=== PATIENT | female | born 1955 | race Caucasian/White ===

== ENCOUNTER 2019-06-19 00:49 | Inpatient (IN) | payer MEDICARE, OTHER ==
[~2019-06-19] VITALS: Ht 170.2 cm; Wt 63.3 kg
[2019-06-19] VITALS (22 sets, daily range): BP systolic 95–128; BP diastolic 47–76
[2019-06-19] MEDS ORDERED: diazepam inj 5 MG/ML inj. IV ONE ×3 (01:05→03:05)
[2019-06-19] MEDS ORDERED: normal saline 1000ML IV soln IVB ONE (01:05)
--- NOTE | 2019-06-19 01:10 | NUR ---
SEIZURE PADS PLACED TO RAILS, ABG DRAWN. PT TREMORING TO BUE. HR 117 OTHERWISE VSS. ACCUCHECK 77.
[2019-06-19 01:16] LABS: ABG BASE EXCESS -21.7 mmol/L (-2.0-3.0); ABG OXYGEN SATURATION 95.1 % (95-98); ABG PCO2 (T) 19.2 mmHg (35.0-45.0); ABG PH (T) 7.112 (7.350-7.450); ABG PO2 (T) 91.2 mmHg (83-108); ALLEN'S TEST POSITIVE; FCOHb 0.7 % (0.5-1.5); FMetHb 0.2 % (0.3-1.12); FO2Hb 94.2 % (94-100); PATIENT TEMPERATURE 36.8; TOTAL HEMOGLOBIN 11.5 G/dl (12.0-16.0)
[2019-06-19 01:35] LABS: BASOPHILS % (AUTO) 0.2 % (0-1); EOSINOPHILS % (AUTO) 0 % (0-6); HEMATOCRIT 35.5 % (35.0-45.0); HEMOGLOBIN 10.6 g/dl (12.0-16.0); LYMPHOCYTES # (AUTO) 0.6 X10'3 (1.1-4.8); LYMPHOCYTES % (AUTO) 7.1 % (21-51); MEAN CORPUSCULAR HEMOGLOBIN 25.5 PG (27.0-31.0); MEAN CORPUSCULAR HGB CONC 29.9 g/dL (33.0-36.5); MEAN CORPUSCULAR VOLUME 85.1 FL (78-98); MEAN PLATELET VOLUME 8.9 FL (7.4-10.4); MONOCYTES % (AUTO) 10.8 % (2-12); NEUTROPHILS # (AUTO) 7.4 X10'3 (1.8-7.7); NEUTROPHILS % (AUTO) 81.9 % (42-75); PLATELET COUNT 168 X10'3 (140-440); RED BLOOD COUNT 4.17 X10'6 (4.20-5.60); RED CELL DISTRIBUTION WIDTH 20.1 % (11.5-14.5)
[2019-06-19 01:47] LABS: CLARITY,URINE CLEAR (Clear); COLOR,URINE YELLOW (Yellow); GLUCOSE, URINE NEGATIVE (Neg); KETONES,URINE >=80 mg/dl (Neg); LEUKOCYTE ESTERASE ,URINE NEGATIVE (Neg); NITRITES, URINE NEGATIVE (Neg); OCCULT BLOOD,URINE LARGE (Neg); PROTEIN,URINE 100 mg/dl (Neg); UROBILINOGEN,URINE 0.2 E.U/dL (0.2-1.0)
[2019-06-19 01:48] LABS: PARTIAL THROMBOPLASTIN TIME 28 SECONDS (22-32)
[2019-06-19 01:52] LABS: UA COLLECTION TYPE FOLEY CATH
[2019-06-19 01:53] LABS: ALANINE AMINOTRANSFERASE 59 U/L (12-78); ALBUMIN 3.2 G/DL (3.4-5.0); ALBUMIN/GLOBULIN RATIO 1.1 (1.1-1.5); ALKALINE PHOSPHATASE 74 IU/L (46-116); ANION GAP 25 (8-16); ASPARTATE AMINO TRANSFERASE 65 U/L (10-37); BILIRUBIN,TOTAL 0.7 MG/DL (0.1-1.0); BLOOD UREA NITROGEN 14 MG/DL (7-18); BUN/CREATININE RATIO 16.5 (6.6-38.0); CALCIUM 7.3 MG/DL (8.5-10.1); CHLORIDE 113 MMOL/L (99-107); CREATININE 0.85 MG/DL (0.40-0.90); ETHANOL < 0.010 GM/DL (0.0-0.010); GLUCOSE 77 MG/DL (70-104); POTASSIUM 3.8 MMOL/L (3.5-5.1); SODIUM 149 MMOL/L (135-145); TOTAL PROTEIN 6.1 G/DL (6.4-8.2); eGFR 67 ML/MIN
[2019-06-19 01:54] LABS: LACTIC SEPSIS 1.5 MMOL/L (0.4-2.0)
[2019-06-19 01:55] LABS: BACTERIA,URINE NONE SEEN /HPF (Neg); CELLULAR CAST 0-4 /LPF (NEGATIVE); RBC,URINE 0-2 /HPF (0-2); SQUAMOUS EPITHELIAL CELL,UR MODERATE /LPF (FEW); TRANSITIONAL EPI CELLS,URINE FEW /HPF; WBC,URINE 0-4 /HPF (0-4)
[2019-06-19 01:55] LABS: TOTAL CARBON DIOXIDE 11.5 MMOL/L (24-32); TROPONIN I 1.69 NG/ML (0.0-0.05)
[2019-06-19] MEDS ORDERED: UNABLE TO OBTAIN (01:55)
[2019-06-19 02:00] LABS: URINE AMPHETAMINE SCREEN NEGATIVE (Neg); URINE BARBITUATE SCREEN NEGATIVE (Neg); URINE BENZODIAZEPINES SCREEN NEGATIVE (Neg); URINE CANNABINOID SCREEN NEGATIVE (Neg); URINE COCAINE SCREEN NEGATIVE (Neg); URINE METHADONE SCREEN NEGATIVE (Neg); URINE OPIATE SCREEN NEGATIVE (Neg); URINE PHENCYCLIDINE SCREEN NEGATIVE (Neg)
[2019-06-19] MEDS: NORepinephrine 8mg/ 250ml NS 250 ML IV SCH ×4 (02:05→20:01)
[2019-06-19 02:39] LABS: NUCLEATED RED BLOOD CELLS 1 /100WBC (0-0); TOTAL CELLS COUNTED 100
[2019-06-19 02:41] LABS: ANISOCYTOSIS 3+; PLATELET ESTIMATE NORMAL
[2019-06-19] MEDS: sodium bicarbonate (8.4%) inj. 50 MEQ in dextrose 5%-water 1,000 ML IV SCH ×2 (03:17→05:09)
--- NOTE | 2019-06-19 03:21 | NUR ---
BICARB GTT STARTED. PT WITH ORDERS FOR LEVOPHED GTT EARLIER BUT BPS REMAINED 110-120, PT NOW WITH CNSISTANT BPS IN MID 80'S SYSTOLIC SO LEVOPHED GTT NOW STARTED RR CONTINUES AT 40 MIN. ABLE TO AWAKEN PT AND SHE WILL TELL ME HER NAME AND . AWAITING TECHNOLOGY INTERNSHIP FOR ADMISSIN ORDERS. GIVEN 2ND DOSE OF VALIUM 5 MG IVP.
[2019-06-19] MEDS ORDERED: haloperidol lactate 5mg/ml inj IM PRN ×2 (03:25)
[2019-06-19] MEDS ORDERED: acetaminophen 325mg tablet PO PRN ×2 (03:25)
[2019-06-19] MEDS ORDERED: loperamide 2mg capsule PO PRN (03:25)
[2019-06-19] MEDS ORDERED: thiamine 100mg/ml 2ml inj. IV ONE (03:25)
[2019-06-19] MEDS: K, MAG and/or Phos replacement - Verify level? MC SCH ×2 (03:25→08:00)
[2019-06-19] MEDS ORDERED: potassium Cl 20mEq/100mL bag 100 ML IV PRN (03:25)
[2019-06-19] MEDS ORDERED: dextrose 50%-water 50ml dispensing syringe IV PRN (03:25)
[2019-06-19] MEDS ORDERED: haloperidol 5mg tablet PO PRN (03:25)
[2019-06-19] MEDS ORDERED: potassium Cl 20 mEq SR tablet PO PRN ×2 (03:25)
[2019-06-19] MEDS: sodium bicarbonate (8.4%) inj. 75 MEQ in dextrose 5% water 500ml 500 ML IV SCH ×4 (03:25→20:00)
[2019-06-19] MEDS ORDERED: cloNIDine 0.1 mg tablet PO PRN (03:25)
[2019-06-19] MEDS ORDERED: sodium bicarbonate (8.4%) 1 mEq/ml syringe IV ONE (03:25)
[2019-06-19] MEDS ORDERED: acetaminophen 650mg rectal suppository RC PRN (03:25)
--- NOTE | 2019-06-19 04:02 | NUR ---
Ken REY AT BEDSIDE FOR ADMISSION. UPDATED THAT PT DOES NOT HAVE TEMP FLORES, ARRIVED WITH STANDARD FLORES CATH. 3 HR TRO DUE NOW. ROOM ASSIGNMENT.
--- NOTE | 2019-06-19 04:05 | NUR ---
Ken REY REQUESTS CVP MONITORING NOW BEFORE GOING UP TO ROOM 2010A ,
[2019-06-19] MEDS ORDERED: normal saline 1000ml 1,000 ML IV ONE (04:10)
--- NOTE | 2019-06-19 04:19 | NUR ---
3 HR TROP DRAWN
--- NOTE | 2019-06-19 04:31 | NUR ---
report given to mago benitez, cicu. ipa 2010A
[2019-06-19] MEDS: LORazepam 2 mg/ml vial IV PRN ×4 (06:11→11:52)
[2019-06-19] MEDS: atenolol 50mg tablet PO SCH (08:00)
[2019-06-19 09:01] LABS: ABG BASE EXCESS -17.1 mmol/L (-2.0-3.0); ABG HCO3 8.7 mmol/L (22.0-26.0); ABG OXYGEN SATURATION 87.1 % (95-98); ABG PH (T) 7.234 (7.350-7.450); ALLEN'S TEST POSITIVE; FCOHb 0.1 % (0.5-1.5); FMetHb 0.2 % (0.3-1.12); FO2Hb 86.8 % (94-100)
[2019-06-19 09:01] LABS: ABG BASE EXCESS -15.7 mmol/L (-2.0-3.0); ABG HCO3 10.5 mmol/L (22.0-26.0); ABG OXYGEN SATURATION 85.4 % (95-98); ABG PCO2 (T) 25.9 mmHg (35.0-45.0); ABG PH (T) 7.224 (7.350-7.450); ABG PO2 (T) 53.2 mmHg (83-108); ALLEN'S TEST POSITIVE; FCOHb 0.3 % (0.5-1.5); FMetHb 0.1 % (0.3-1.12); FO2Hb 85.1 % (94-100); TOTAL HEMOGLOBIN 9.5 G/dl (12.0-16.0)
[2019-06-19] MEDS: pantoprazole 40 MG vial IV SCH (09:12)
[2019-06-19] MEDS: MVI, adult No.4 with vit. K 10 ML in dextrose 5% water 500ml 500 ML IV SCH ×2 (09:13)
[2019-06-19] MEDS: thiamine inj. 100 MG in normal saline 100ml IV soln 100 ML IV SCH (09:13)
[2019-06-19] MEDS: dexmedetomidin/NS 400mcg/100ml 100 ML IV SCH ×3 (09:14→22:27)
[2019-06-19] MEDS: heparin, porcine 5000 units/ml vial SQ SCH ×2 (09:17→20:03)
[2019-06-19] MEDS: dextrose 5%-normal saline 1,000 ML IV SCH (09:27)
[2019-06-19] MEDS: folic acid 1mg/0.2ml inj IV SCH (11:16)
[2019-06-19] MEDS: levoFLOXACIN-Levaquin 500mg/D5 100 ML IV SCH (11:57)
--- NOTE | 2019-06-19 18:28 | NUR ---
Problems reprioritized. Patient report given, questions answered & plan of care reviewed with Zena BLOOD.
[2019-06-19 21:56] LABS: ALBUMIN 2.5 G/DL (3.4-5.0); ANION GAP 10 (8-16); BLOOD UREA NITROGEN 4 MG/DL (7-18); BUN/CREATININE RATIO 5.9 (6.6-38.0); CALCIUM 6.8 MG/DL (8.5-10.1); CHLORIDE 109 MMOL/L (99-107); CREATININE 0.68 MG/DL (0.40-0.90); GLUCOSE 189 MG/DL (70-104); POTASSIUM 2.5 MMOL/L (3.5-5.1); SODIUM 147 MMOL/L (135-145); TOTAL CARBON DIOXIDE 28.2 MMOL/L (24-32); eGFR 87 ML/MIN
[2019-06-19 21:57] LABS: TROPONIN I 0.78 NG/ML (0.0-0.05)
[2019-06-19 22:12] LABS: MAGNESIUM 1.4 MG/DL (1.5-2.4)
[2019-06-19] MEDS: potassium Cl 20mEq/100mL bag 100 ML IV PRN ×2 (22:26→23:17)
[2019-06-20] VITALS (24 sets, daily range): BP systolic 89–138; BP diastolic 43–75
[2019-06-20] MEDS: potassium Cl 20mEq/100mL bag 100 ML IV PRN ×2 (00:31→01:36)
[2019-06-20] MEDS: LORazepam 2 mg/ml vial IV PRN ×5 (01:35→14:42)
[2019-06-20] MEDS: sodium bicarbonate (8.4%) inj. 75 MEQ in dextrose 5% water 500ml 500 ML IV SCH ×2 (02:09→08:19)
[2019-06-20] MEDS: morphine 4 MG/ML inj SYRINge IV PRN (03:11)
[2019-06-20 04:38] LABS: BASOPHILS # (AUTO) 0.1 X10'3 (0-0.2); BASOPHILS % (AUTO) 0.9 % (0-1); EOSINOPHILS % (AUTO) 0.6 % (0-6); HEMATOCRIT 30.4 % (35.0-45.0); HEMOGLOBIN 9.6 g/dl (12.0-16.0); LYMPHOCYTES # (AUTO) 0.8 X10'3 (1.1-4.8); LYMPHOCYTES % (AUTO) 11.2 % (21-51); MEAN CORPUSCULAR HEMOGLOBIN 25.4 PG (27.0-31.0); MEAN CORPUSCULAR HGB CONC 31.6 g/dL (33.0-36.5); MEAN CORPUSCULAR VOLUME 80.4 FL (78-98); MEAN PLATELET VOLUME 8.3 FL (7.4-10.4); MONOCYTES % (AUTO) 14.7 % (2-12); NEUTROPHILS % (AUTO) 72.6 % (42-75); PLATELET COUNT 172 X10'3 (140-440); RED BLOOD COUNT 3.78 X10'6 (4.20-5.60); RED CELL DISTRIBUTION WIDTH 20.3 % (11.5-14.5); WHITE BLOOD COUNT 6.9 X10'3 (4.5-11.0)
[2019-06-20 05:02] LABS: ALANINE AMINOTRANSFERASE 31 U/L (12-78); ALBUMIN 2.5 G/DL (3.4-5.0); ALBUMIN/GLOBULIN RATIO 0.9 (1.1-1.5); ALKALINE PHOSPHATASE 57 IU/L (46-116); AMYLASE 27 U/L (25-115); ANION GAP 5 (8-16); ASPARTATE AMINO TRANSFERASE 44 U/L (10-37); BILIRUBIN,TOTAL 0.8 MG/DL (0.1-1.0); BLOOD UREA NITROGEN 2 MG/DL (7-18); BUN/CREATININE RATIO 3.2 (6.6-38.0); CALCIUM 7.3 MG/DL (8.5-10.1); CHLORIDE 107 MMOL/L (99-107); CREATININE 0.62 MG/DL (0.40-0.90); GLUCOSE 221 MG/DL (70-104); LIPASE 121 U/L (73-393); MAGNESIUM 1.4 MG/DL (1.5-2.4); POTASSIUM 3.2 MMOL/L (3.5-5.1); SODIUM 144 MMOL/L (135-145); TOTAL CARBON DIOXIDE 32.5 MMOL/L (24-32); TOTAL PROTEIN 5.4 G/DL (6.4-8.2); eGFR > 90 ML/MIN
[2019-06-20 05:07] LABS: PHOSPHORUS 0.9 MG/DL (2.3-4.5)
[2019-06-20 05:59] LABS: ANISOCYTOSIS 3+; HYPOCHROMASIA 1+; PLATELET ESTIMATE NORMAL
[2019-06-20] MEDS ORDERED: sodium phosphate inj. 15 MMOL in dextrose 5%-water 250 ML IV PRN (06:00)
[2019-06-20] MEDS ORDERED: sodium phosphate inj. 30 MMOL in dextrose 5%-water 250 ML IV PRN (06:00)
[2019-06-20] MEDS: dexmedetomidin/NS 400mcg/100ml 100 ML IV SCH ×3 (06:11→21:36)
[2019-06-20] MEDS: dextrose 5%-normal saline 1,000 ML IV SCH (06:12)
[2019-06-20] MEDS: K, MAG and/or Phos replacement - Verify level? MC SCH (08:00)
[2019-06-20] MEDS: levoFLOXACIN-Levaquin 500mg/D5 100 ML IV SCH (08:05)
[2019-06-20] MEDS: thiamine inj. 100 MG in normal saline 100ml IV soln 100 ML IV SCH (08:06)
[2019-06-20] MEDS: MVI, adult No.4 with vit. K 10 ML in dextrose 5% water 500ml 500 ML IV SCH ×2 (08:08)
[2019-06-20] MEDS: folic acid 1mg/0.2ml inj IV SCH (08:08)
[2019-06-20] MEDS: heparin, porcine 5000 units/ml vial SQ SCH ×2 (08:12→22:05)
[2019-06-20] MEDS: pantoprazole 40 MG vial IV SCH (08:13)
[2019-06-20] MEDS: atenolol 50mg tablet PO SCH (08:13)
--- NOTE | 2019-06-20 11:16 | NUR ---
Tube feeding consult. Patient admitted with EtOH, tremors, withdrawal, made NPO yesterday d/t unsafe swallow and altered mentation. Note that electrolytes are low, Phos 0.9, Mag 1.4, K 3.2, receiving banana bag, thiamine, and potassium chloride IV prn replacement. Electrolytes likely low d/t EtOH and poor PO intake prior to admission. Recommend starting tube feeding low and advance with caution as with increased risk of refeeding syndrome, d/w bedside RN. Pt with EtOH ketoacidosis per MD. Recommend: 1. continuous tube feeding starting using Jevity 1.2 at 10 ml/hr and advance as tolerated by 20 ml q 8 hours to goal rate of 60 ml/hr will provide total volume 1440 ml, 1728 cals, 80 g protein, 1166 ml water. 2. additional water flush 135 ml q 6 hours 3. daily weights, prealbumin q monday and 4. Recommend BSS prior to diet advancement Addendum: 06/20/19 at [address] Amended: Links added.
[2019-06-20] MEDS ORDERED: dextrose 50%-water 50ml dispensing syringe IV PRN ×2 (11:25)
[2019-06-20] MEDS ORDERED: dextrose ORAL solution 15 GM/59 ML bottle OGT PRN ×2 (11:25)
[2019-06-20] MEDS ORDERED: glucagon, human recombinant 1mg kit SUBCUT PRN (11:25)
[2019-06-20] MEDS ORDERED: insulin Lispro (HumaLOG) vial - multi-dose SQ SCH (11:25)
[2019-06-20] MEDS ORDERED: MESSAGE TO PHARMACY PO ONE (11:25)
[2019-06-20] MEDS ORDERED: acetaminophen 325mg/10.15ml oral unit dose solution OGT PRN ×2 (11:36)
[2019-06-20 12:55] LABS: HEMOGLOBIN A1C 5.9 % (4.5-6.2)
[2019-06-20] MEDS: insulin regular, human U-100 3ml vial - multi-dose SQ SCH (15:27)
[2019-06-20] MEDS: POTASSIUM BICARB 20meq eff tab 20 MEQ TABLET.EFF OGT PRN (17:35)
[2019-06-20] MEDS: normal saline 1000ml 1,000 ML IV SCH (18:05)
[2019-06-20 18:17] LABS: ALANINE AMINOTRANSFERASE 40 U/L (12-78); ALBUMIN/GLOBULIN RATIO 0.8 (1.1-1.5); ALKALINE PHOSPHATASE 53 IU/L (46-116); ANION GAP 1 (8-16); ASPARTATE AMINO TRANSFERASE 42 U/L (10-37); BILIRUBIN,TOTAL 0.6 MG/DL (0.1-1.0); BLOOD UREA NITROGEN 1 MG/DL (7-18); BUN/CREATININE RATIO 1.9 (6.6-38.0); CALCIUM 6.2 MG/DL (8.5-10.1); CHLORIDE 110 MMOL/L (99-107); CREATININE 0.52 MG/DL (0.40-0.90); GLUCOSE 103 MG/DL (70-104); PHOSPHORUS 1.8 MG/DL (2.3-4.5); SODIUM 145 MMOL/L (135-145); TOTAL CARBON DIOXIDE 33.6 MMOL/L (24-32); TOTAL PROTEIN 4.5 G/DL (6.4-8.2); eGFR > 90 ML/MIN
[2019-06-20 18:21] LABS: POTASSIUM 2.3 MMOL/L (3.5-5.1)
[2019-06-20] MEDS: insulin glargine (Lantus) pen - multi-dose SQ SCH (21:00)
[2019-06-20] MEDS: NORepinephrine 8mg/ 250ml NS 250 ML IV SCH (21:37)
[2019-06-21] VITALS (23 sets, daily range): BP systolic 85–129; BP diastolic 42–75
[2019-06-21] MEDS: LORazepam 2 mg/ml vial IV PRN ×8 (01:11→22:28)
[2019-06-21] MEDS: POTASSIUM BICARB 20meq eff tab 20 MEQ TABLET.EFF OGT PRN ×4 (01:23→12:06)
[2019-06-21] MEDS: morphine 4 MG/ML inj SYRINge IV PRN ×2 (02:52→19:58)
[2019-06-21] MEDS ORDERED: LORazepam 2 mg/ml vial IV PRN (03:25)
[2019-06-21] MEDS ORDERED: LORazepam 1 MG tablet OGT PRN (03:25)
[2019-06-21 03:36] LABS: BASOPHILS % (AUTO) 0.5 % (0-1); EOSINOPHILS % (AUTO) 0.9 % (0-6); HEMATOCRIT 28.2 % (35.0-45.0); HEMOGLOBIN 8.9 g/dl (12.0-16.0); LYMPHOCYTES # (AUTO) 0.9 X10'3 (1.1-4.8); LYMPHOCYTES % (AUTO) 16.5 % (21-51); MEAN CORPUSCULAR HEMOGLOBIN 25.1 PG (27.0-31.0); MEAN CORPUSCULAR HGB CONC 31.7 g/dL (33.0-36.5); MEAN CORPUSCULAR VOLUME 79.2 FL (78-98); MEAN PLATELET VOLUME 8.7 FL (7.4-10.4); MONOCYTES # (AUTO) 0.9 X10'3 (0-0.9); MONOCYTES % (AUTO) 17.6 % (2-12); NEUTROPHILS # (AUTO) 3.4 X10'3 (1.8-7.7); NEUTROPHILS % (AUTO) 64.5 % (42-75); PLATELET COUNT 143 X10'3 (140-440); RED BLOOD COUNT 3.56 X10'6 (4.20-5.60); RED CELL DISTRIBUTION WIDTH 20.2 % (11.5-14.5); WHITE BLOOD COUNT 5.2 X10'3 (4.5-11.0)
[2019-06-21 03:41] LABS: ALANINE AMINOTRANSFERASE 46 U/L (12-78); ALBUMIN 2.3 G/DL (3.4-5.0); ALBUMIN/GLOBULIN RATIO 0.8 (1.1-1.5); ALKALINE PHOSPHATASE 60 IU/L (46-116); AMYLASE 20 U/L (25-115); ANION GAP 2 (8-16); ASPARTATE AMINO TRANSFERASE 51 U/L (10-37); BILIRUBIN,TOTAL 0.7 MG/DL (0.1-1.0); BLOOD UREA NITROGEN 3 MG/DL (7-18); BUN/CREATININE RATIO 5.4 (6.6-38.0); CHLORIDE 109 MMOL/L (99-107); CREATININE 0.56 MG/DL (0.40-0.90); GLUCOSE 156 MG/DL (70-104); LIPASE 54 U/L (73-393); MAGNESIUM 1.2 MG/DL (1.5-2.4); PHOSPHORUS 1.7 MG/DL (2.3-4.5); SODIUM 147 MMOL/L (135-145); TOTAL CARBON DIOXIDE 35.8 MMOL/L (24-32); TOTAL PROTEIN 5.1 G/DL (6.4-8.2); eGFR > 90 ML/MIN
[2019-06-21 04:52] LABS: TOTAL CELLS COUNTED 100
[2019-06-21 04:53] LABS: ANISOCYTOSIS 2+; MICROCYTOSIS 1+; PLATELET ESTIMATE NORMAL; STOMATOCYTES 1+
[2019-06-21] MEDS: dexmedetomidin/NS 400mcg/100ml 100 ML IV SCH ×4 (05:17→23:27)
[2019-06-21] MEDS: normal saline 1000ml 1,000 ML IV SCH ×3 (07:49→22:28)
[2019-06-21] MEDS: folic acid 1mg/0.2ml inj IV SCH (07:50)
[2019-06-21] MEDS: heparin, porcine 5000 units/ml vial SQ SCH ×2 (07:50→19:58)
[2019-06-21] MEDS: MVI, adult No.4 with vit. K 10 ML in dextrose 5% water 500ml 500 ML IV SCH ×2 (07:50)
[2019-06-21] MEDS: Neutra Phos packet PO PRN ×2 (07:51→12:05)
[2019-06-21] MEDS: thiamine inj. 100 MG in normal saline 100ml IV soln 100 ML IV SCH (07:52)
[2019-06-21] MEDS: pantoprazole 40 MG vial IV SCH (07:52)
[2019-06-21] MEDS: levoFLOXACIN-Levaquin 500mg/D5 100 ML IV SCH (07:52)
[2019-06-21] MEDS: atenolol 50mg tablet OGT SCH (08:00)
[2019-06-21] MEDS: K, MAG and/or Phos replacement - Verify level? MC SCH (08:00)
--- NOTE | 2019-06-21 09:22 | NUR ---
Tube feeding consult. Patient admitted with EtOH, tremors, withdrawal, made NPO yesterday d/t unsafe swallow and altered mentation. Note that electrolytes are low, Phos 0.9, Mag 1.4, K 3.2, receiving banana bag, thiamine, and potassium chloride IV prn replacement. Electrolytes likely low d/t EtOH and poor PO intake prior to admission. Recommend starting tube feeding low and advance with caution as with increased risk of refeeding syndrome, d/w bedside RN. Pt with EtOH ketoacidosis per MD. Recommend: 1. continuous tube feeding starting using Jevity 1.2 at 10 ml/hr and advance as tolerated by 20 ml q 8 hours to goal rate of 60 ml/hr will provide total volume 1440 ml, 1728 cals, 80 g protein, 1166 ml water. 2. additional water flush 200 ml q 4 hours 3. daily weights, prealbumin q monday and 4. Recommend BSS prior to diet advancement Addendum: 06/21/19 at [address] Amended: Links added.
--- NOTE | 2019-06-21 11:00 | NUR ---
Patient continues to have high respiratory rate in the 30s-40s, but drowsy. Pt restless at times but falls asleep. Dr. Almanza aware and notified during rounds. Orders to continue Ativan as ordered. No orders for ABG at this time.
--- NOTE | 2019-06-21 11:42 | NUR ---
F/u: Per RN at critical care rounds pt pulled out NG tube. ST has been consulted for BSS to determine if pt is able to tolerate PO intake. NG tube to be replaced and TF resumed if pt fails BSS per MD at critical care rounds. Pt receiving electrolyte replacement. No documented LBM however per RN pt with 2-3 loose BMs today, pt with PRN Imodium. Will continue to follow closely. Addendum: 06/21/19 at [address] Amended: Links added.
[2019-06-21] MEDS: magnesium Cl slow-release 64mg tablet PO SCH ×2 (11:52→19:58)
[2019-06-21] MEDS: NORepinephrine 8mg/ 250ml NS 250 ML IV SCH (12:05)
[2019-06-21] MEDS ORDERED: NO HOME MEDS (12:48)
[2019-06-21 17:21] LABS: ABG BASE EXCESS -4.3 mmol/L (-2.0-3.0); ABG HCO3 20.1 mmol/L (22.0-26.0); ABG OXYGEN SATURATION 92.3 % (95-98); ABG PCO2 (T) 33.9 mmHg (35.0-45.0); ABG PH (T) 7.391 (7.350-7.450); ABG PO2 (T) 76.8 mmHg (83-108); ALLEN'S TEST POSITIVE; FCOHb 0.4 % (0.5-1.5); FMetHb 0.3 % (0.3-1.12); FO2Hb 91.7 % (94-100); TOTAL HEMOGLOBIN 8.7 G/dl (12.0-16.0)
--- NOTE | 2019-06-21 18:38 | NUR ---
Problems reprioritized. Patient report given, questions answered & plan of care reviewed with Liz BLOOD.
[2019-06-21] MEDS ORDERED: magnesium Cl slow-release 64mg tablet PO SCH (20:00)
[2019-06-21] MEDS: insulin glargine (Lantus) pen - multi-dose SQ SCH (21:00)
--- NOTE | 2019-06-21 21:58 | NUR ---
1830..Patient in room CICU 2009. I have received report from Thuan Lovett RN and had the opportunity to ask questions and assume patient care.
--- NOTE | 2019-06-21 22:46 | NUR ---
1999..Assessment as noted, pt restless/agitated at times, incontinent of soft, pasty stool. Only oriented to person, speech slurred.
--- NOTE | 2019-06-21 22:48 | NUR ---
2244..Again incontinent of stool, no other changes noted.
[2019-06-22] VITALS (24 sets, daily range): BP systolic 97–140; BP diastolic 53–76
[2019-06-22 00:20] LABS: ABG BASE EXCESS 4.7 mmol/L (-2.0-3.0); ABG HCO3 29.6 mmol/L (22.0-26.0); ABG OXYGEN SATURATION 80.7 % (95-98); ABG PH (T) 7.427 (7.350-7.450); ABG PO2 (T) 46.2 mmHg (83-108); ALLEN'S TEST POSITIVE; FLOW 3 L/min; FO2Hb 80.7 % (94-100)
[2019-06-22] MEDS: morphine 4 MG/ML inj SYRINge IV PRN (01:41)
[2019-06-22] MEDS: LORazepam 2 mg/ml vial IV PRN ×2 (01:41→16:48)
--- NOTE | 2019-06-22 02:19 | NUR ---
0100..Per order, rectal bag places, pt with continous diarrhea, and merry area with diaper rash. tube placed without difficulty.
[2019-06-22 03:19] LABS: BASOPHILS % (AUTO) 0.3 % (0-1); EOSINOPHILS % (AUTO) 0.7 % (0-6); HEMATOCRIT 28.6 % (35.0-45.0); HEMOGLOBIN 8.9 g/dl (12.0-16.0); LYMPHOCYTES % (AUTO) 15.7 % (21-51); MEAN CORPUSCULAR HEMOGLOBIN 25.1 PG (27.0-31.0); MEAN CORPUSCULAR HGB CONC 31.1 g/dL (33.0-36.5); MEAN CORPUSCULAR VOLUME 80.6 FL (78-98); MEAN PLATELET VOLUME 8.6 FL (7.4-10.4); MONOCYTES # (AUTO) 0.9 X10'3 (0-0.9); MONOCYTES % (AUTO) 14.5 % (2-12); NEUTROPHILS # (AUTO) 4.2 X10'3 (1.8-7.7); NEUTROPHILS % (AUTO) 68.8 % (42-75); PLATELET COUNT 166 X10'3 (140-440); RED BLOOD COUNT 3.55 X10'6 (4.20-5.60); RED CELL DISTRIBUTION WIDTH 21.2 % (11.5-14.5); WHITE BLOOD COUNT 6.2 X10'3 (4.5-11.0)
[2019-06-22 03:28] LABS: ALANINE AMINOTRANSFERASE 53 U/L (12-78); ALBUMIN 2.3 G/DL (3.4-5.0); ALBUMIN/GLOBULIN RATIO 0.8 (1.1-1.5); ALKALINE PHOSPHATASE 77 IU/L (46-116); AMYLASE 18 U/L (25-115); ANION GAP 1 (8-16); ASPARTATE AMINO TRANSFERASE 47 U/L (10-37); BILIRUBIN,TOTAL 0.4 MG/DL (0.1-1.0); BLOOD UREA NITROGEN 6 MG/DL (7-18); BUN/CREATININE RATIO 11.5 (6.6-38.0); CALCIUM 7.9 MG/DL (8.5-10.1); CHLORIDE 113 MMOL/L (99-107); CREATININE 0.52 MG/DL (0.40-0.90); GLUCOSE 125 MG/DL (70-104); LIPASE 61 U/L (73-393); MAGNESIUM 1.5 MG/DL (1.5-2.4); PHOSPHORUS 2.9 MG/DL (2.3-4.5); SODIUM 149 MMOL/L (135-145); TOTAL CARBON DIOXIDE 35.4 MMOL/L (24-32); TOTAL PROTEIN 5.1 G/DL (6.4-8.2); eGFR > 90 ML/MIN
[2019-06-22 04:12] LABS: PLATELET ESTIMATE NORMAL
[2019-06-22 04:33] LABS: ANISOCYTOSIS 3+
--- NOTE | 2019-06-22 05:41 | NUR ---
0400>>oxygen sats keep dropping and staying in the low 80s, pt place on NRB mask at 15l, with good effect. Remains confused, agitated at times.
[2019-06-22] MEDS: dexmedetomidin/NS 400mcg/100ml 100 ML IV SCH ×3 (06:16→19:21)
--- NOTE | 2019-06-22 06:38 | NUR ---
0630..Problems reprioritized. Patient report given, questions answered & plan of care reviewed with Brayden BLOOD.
--- NOTE | 2019-06-22 07:25 | NUR ---
Tube feed is off and there is none available here. Dietary contacted
[2019-06-22] MEDS: K, MAG and/or Phos replacement - Verify level? MC SCH (08:00)
[2019-06-22] MEDS: atenolol 50mg tablet OGT SCH (09:40)
[2019-06-22] MEDS: MVI, adult No.4 with vit. K 10 ML in dextrose 5% water 500ml 500 ML IV SCH ×2 (09:40)
[2019-06-22] MEDS: folic acid 1mg/0.2ml inj IV SCH (09:40)
[2019-06-22] MEDS: pantoprazole 40 MG vial IV SCH (09:40)
[2019-06-22] MEDS: heparin, porcine 5000 units/ml vial SQ SCH ×2 (09:41→21:12)
[2019-06-22] MEDS: NORepinephrine 8mg/ 250ml NS 250 ML IV SCH (09:45)
[2019-06-22] MEDS: magnesium Cl slow-release 64mg tablet PO SCH ×2 (09:47→20:00)
[2019-06-22] MEDS: thiamine inj. 100 MG in normal saline 100ml IV soln 100 ML IV SCH (09:55)
[2019-06-22] MEDS: normal saline 1000ml 1,000 ML IV SCH ×2 (11:11→21:14)
--- NOTE | 2019-06-22 11:23 | NUR ---
Reassessment: Pt s/p BSS with ST recs pureed food with thin liquids. PO diet has been adjusted as such, pending documentation of PO intake since diet advancement. Spoke with RN who reports NG tube has been replaced and TF has been resumed as pt continues to be A/O x 1 and confused. TF appropriate as it's unlikely that pt will be able to meet nutrient needs with PO intake alone at this time given decreased mentation. LBM 3/6 documented as diarrhea. Pt receiving PRN Imodium. Will continue to follow closely. Recommend: 1. continuous tube feeding using Jevity 1.2 starting at 10 ml/hr and advance as tolerated by 20 ml q 8 hours to goal rate of 60 ml/hr will provide total volume 1440 ml, 1728 cals, 80 g protein, 1166 ml water. 2. additional water flush 200 ml q 4 hours 3. daily weights, prealbumin q Monday and 4. Pureed diet with thin liquids per ST recs; continue TF until pt able to meet nutrient needs with consistent PO intake averaging 65% of meals Addendum: 06/22/19 at [address] Amended: Links added.
[2019-06-22] MEDS: insulin regular, human U-100 3ml vial - multi-dose SQ SCH (21:24)
[2019-06-22] MEDS: insulin glargine (Lantus) pen - multi-dose SQ SCH (21:25)
[2019-06-22] MEDS ORDERED: albuterol 2.5 MG/3 ML nebule NEB PRN (23:00)
[2019-06-22] MEDS ORDERED: magnesium 2GM in 50ml NS 50 ML IV ONE (23:35)
[2019-06-23] VITALS (22 sets, daily range): BP systolic 97–142; BP diastolic 42–76
[2019-06-23] MEDS: dexmedetomidin/NS 400mcg/100ml 100 ML IV SCH (01:28)
[2019-06-23] MEDS: NORepinephrine 8mg/ 250ml NS 250 ML IV SCH ×2 (02:45→22:05)
[2019-06-23] MEDS: ipratropium/albuterol 3ml nebule NEB SCH ×4 (03:21→21:30)
[2019-06-23] MEDS ORDERED: LORazepam 1 MG tablet OGT PRN (03:25)
[2019-06-23 03:56] LABS: BASOPHILS % (AUTO) 0.4 % (0-1); EOSINOPHILS # (AUTO) 0.1 X10'3 (0-0.9); EOSINOPHILS % (AUTO) 1.7 % (0-6); HEMATOCRIT 26.5 % (35.0-45.0); HEMOGLOBIN 8.3 g/dl (12.0-16.0); LYMPHOCYTES # (AUTO) 0.9 X10'3 (1.1-4.8); LYMPHOCYTES % (AUTO) 16.9 % (21-51); MEAN CORPUSCULAR HEMOGLOBIN 25.3 PG (27.0-31.0); MEAN CORPUSCULAR HGB CONC 31.4 g/dL (33.0-36.5); MEAN CORPUSCULAR VOLUME 80.3 FL (78-98); MEAN PLATELET VOLUME 8.9 FL (7.4-10.4); MONOCYTES # (AUTO) 0.7 X10'3 (0-0.9); MONOCYTES % (AUTO) 13.3 % (2-12); NEUTROPHILS # (AUTO) 3.5 X10'3 (1.8-7.7); NEUTROPHILS % (AUTO) 67.7 % (42-75); PLATELET COUNT 178 X10'3 (140-440); RED CELL DISTRIBUTION WIDTH 21.3 % (11.5-14.5); WHITE BLOOD COUNT 5.2 X10'3 (4.5-11.0)
[2019-06-23 04:10] LABS: ALANINE AMINOTRANSFERASE 48 U/L (12-78); ALBUMIN 2.1 G/DL (3.4-5.0); ALBUMIN/GLOBULIN RATIO 0.8 (1.1-1.5); ALKALINE PHOSPHATASE 72 IU/L (46-116); AMYLASE 18 U/L (25-115); ANION GAP 1 (8-16); ASPARTATE AMINO TRANSFERASE 33 U/L (10-37); BILIRUBIN,TOTAL 0.3 MG/DL (0.1-1.0); BLOOD UREA NITROGEN 8 MG/DL (7-18); BUN/CREATININE RATIO 20.5 (6.6-38.0); CHLORIDE 111 MMOL/L (99-107); CREATININE 0.39 MG/DL (0.40-0.90); GLUCOSE 114 MG/DL (70-104); LIPASE 64 U/L (73-393); MAGNESIUM 2.4 MG/DL (1.5-2.4); POTASSIUM 3.6 MMOL/L (3.5-5.1); SODIUM 146 MMOL/L (135-145); TOTAL CARBON DIOXIDE 34.2 MMOL/L (24-32); TOTAL PROTEIN 4.9 G/DL (6.4-8.2); eGFR > 90 ML/MIN
--- NOTE | 2019-06-23 06:49 | NUR ---
Patient in room CICU 2009. I have received report from Jethro and had the opportunity to ask questions and assume patient care.
[2019-06-23] MEDS: K, MAG and/or Phos replacement - Verify level? MC SCH (06:52)
[2019-06-23] MEDS: atenolol 50mg tablet OGT SCH (07:14)
[2019-06-23] MEDS: heparin, porcine 5000 units/ml vial SQ SCH ×2 (07:20→20:00)
[2019-06-23] MEDS: pantoprazole 40 MG vial IV SCH (07:20)
[2019-06-23] MEDS: thiamine inj. 100 MG in normal saline 100ml IV soln 100 ML IV SCH (07:21)
[2019-06-23] MEDS: normal saline 1000ml 1,000 ML IV SCH ×3 (07:21→23:18)
[2019-06-23] MEDS: folic acid 1mg/0.2ml inj IV SCH (07:21)
[2019-06-23] MEDS: MVI, adult No.4 with vit. K 10 ML in dextrose 5% water 500ml 500 ML IV SCH ×2 (07:21)
[2019-06-23] MEDS: magnesium Cl slow-release 64mg tablet PO SCH ×2 (07:22→20:00)
[2019-06-23] MEDS: insulin regular, human U-100 3ml vial - multi-dose SQ SCH ×3 (08:31→21:59)
[2019-06-23 12:10] LABS: ABG BASE EXCESS 4.1 mmol/L (-2.0-3.0); ABG HCO3 28.9 mmol/L (22.0-26.0); ABG OXYGEN SATURATION 89.8 % (95-98); ABG PCO2 (T) 44.4 mmHg (35.0-45.0); ABG PH (T) 7.431 (7.350-7.450); ABG PO2 (T) 60.6 mmHg (83-108); ALLEN'S TEST POSITIVE; FCOHb 0.3 % (0.5-1.5); FLOW 15 L/min; FMetHb 0.1 % (0.3-1.12); FO2Hb 89.4 % (94-100); TOTAL HEMOGLOBIN 9.3 G/dl (12.0-16.0)
--- NOTE | 2019-06-23 18:25 | NUR ---
Problems reprioritized. Patient report given, questions answered & plan of care reviewed with faviola.
[2019-06-23] MEDS: insulin glargine (Lantus) pen - multi-dose SQ SCH (21:57)
[2019-06-23] MEDS: ondansetron/PF 4mg/2ml inj IV PRN (23:49)
[2019-06-24] VITALS (22 sets, daily range): BP systolic 96–146; BP diastolic 37–123
[2019-06-24] MEDS: ipratropium/albuterol 3ml nebule NEB SCH ×4 (02:50→20:46)
[2019-06-24] MEDS: LORazepam 2 mg/ml vial IV PRN ×10 (04:59→22:10)
[2019-06-24 06:12] LABS: ALANINE AMINOTRANSFERASE 38 U/L (12-78); ALBUMIN 2.1 G/DL (3.4-5.0); ALBUMIN/GLOBULIN RATIO 0.7 (1.1-1.5); ALKALINE PHOSPHATASE 66 IU/L (46-116); AMYLASE 28 U/L (25-115); ANION GAP 3 (8-16); ASPARTATE AMINO TRANSFERASE 22 U/L (10-37); BILIRUBIN,TOTAL 0.3 MG/DL (0.1-1.0); BLOOD UREA NITROGEN 7 MG/DL (7-18); BUN/CREATININE RATIO 15.9 (6.6-38.0); CALCIUM 8.7 MG/DL (8.5-10.1); CHLORIDE 111 MMOL/L (99-107); CREATININE 0.44 MG/DL (0.40-0.90); GLUCOSE 94 MG/DL (70-104); LIPASE 129 U/L (73-393); MAGNESIUM 1.7 MG/DL (1.5-2.4); PHOSPHORUS 4.5 MG/DL (2.3-4.5); POTASSIUM 3.4 MMOL/L (3.5-5.1); SODIUM 147 MMOL/L (135-145); TOTAL CARBON DIOXIDE 33.2 MMOL/L (24-32); eGFR > 90 ML/MIN
--- NOTE | 2019-06-24 06:15 | NUR ---
Patient in room CICU 2009. I have received report from JEREMI Castellanos and had the opportunity to ask questions and assume patient care.
[2019-06-24 06:23] LABS: BASOPHILS % (AUTO) 0.5 % (0-1); EOSINOPHILS # (AUTO) 0.1 X10'3 (0-0.9); EOSINOPHILS % (AUTO) 1.9 % (0-6); HEMATOCRIT 25.7 % (35.0-45.0); HEMOGLOBIN 8.1 g/dl (12.0-16.0); LYMPHOCYTES # (AUTO) 0.8 X10'3 (1.1-4.8); LYMPHOCYTES % (AUTO) 16.3 % (21-51); MEAN CORPUSCULAR HEMOGLOBIN 25.4 PG (27.0-31.0); MEAN CORPUSCULAR HGB CONC 31.4 g/dL (33.0-36.5); MEAN CORPUSCULAR VOLUME 80.9 FL (78-98); MEAN PLATELET VOLUME 9.5 FL (7.4-10.4); MONOCYTES % (AUTO) 18.9 % (2-12); NEUTROPHILS # (AUTO) 3.2 X10'3 (1.8-7.7); NEUTROPHILS % (AUTO) 62.4 % (42-75); PLATELET COUNT 200 X10'3 (140-440); RED BLOOD COUNT 3.18 X10'6 (4.20-5.60); WHITE BLOOD COUNT 5.2 X10'3 (4.5-11.0)
[2019-06-24] MEDS: MVI, adult No.4 with vit. K 10 ML in dextrose 5% water 500ml 500 ML IV SCH ×2 (07:58)
[2019-06-24] MEDS: K, MAG and/or Phos replacement - Verify level? MC SCH (08:00)
[2019-06-24] MEDS: ondansetron/PF 4mg/2ml inj IV PRN (08:00)
[2019-06-24] MEDS: atenolol 50mg tablet OGT SCH (08:00)
[2019-06-24] MEDS: folic acid 1mg/0.2ml inj IV SCH (08:06)
[2019-06-24] MEDS: heparin, porcine 5000 units/ml vial SQ SCH ×2 (08:29→19:43)
[2019-06-24] MEDS: pantoprazole 40mg Tablet.DR PO SCH (08:29)
[2019-06-24] MEDS: magnesium Cl slow-release 64mg tablet PO SCH ×2 (08:30→19:37)
[2019-06-24] MEDS: POTASSIUM BICARB 20meq eff tab 20 MEQ TABLET.EFF OGT PRN ×3 (08:30→19:37)
[2019-06-24 09:43] LABS: TOTAL CELLS COUNTED 100; TOXIC GRANULATION 3+
[2019-06-24 09:44] LABS: ANISOCYTOSIS 3+; HYPOCHROMASIA 2+; PLATELET ESTIMATE NORMAL
[2019-06-24 09:45] LABS: POLYCHROMASIA 1+; SMUDGE CELLS FEW
[2019-06-24] MEDS: thiamine 100mg/ml 2ml inj. IV SCH (11:23)
[2019-06-24] MEDS: normal saline 1000ml 1,000 ML IV SCH ×2 (13:01→22:49)
[2019-06-24] MEDS: insulin regular, human U-100 3ml vial - multi-dose SQ SCH (14:01)
[2019-06-24] MEDS: dexmedetomidin/NS 400mcg/100ml 100 ML IV SCH (15:53)
[2019-06-24] MEDS: NORepinephrine 8mg/ 250ml NS 250 ML IV SCH (17:25)
--- NOTE | 2019-06-24 18:15 | NUR ---
Student documentation: I have reviewed and agree with all interventions, assessments performed and documented by JEREMI Wright. Patient stable at transfer of care.
[2019-06-24] MEDS: insulin glargine (Lantus) pen - multi-dose SQ SCH (21:22)
[2019-06-25] VITALS (24 sets, daily range): BP systolic 103–165; BP diastolic 47–91
[2019-06-25] MEDS: LORazepam 2 mg/ml vial IV PRN ×5 (00:46→13:59)
[2019-06-25] MEDS: morphine 2 MG/ML inj. syringe IV PRN (02:05)
[2019-06-25] MEDS: ipratropium/albuterol 3ml nebule NEB SCH ×4 (02:27→20:32)
[2019-06-25 04:54] LABS: BASOPHILS % (AUTO) 0.8 % (0-1); EOSINOPHILS # (AUTO) 0.1 X10'3 (0-0.9); EOSINOPHILS % (AUTO) 2.3 % (0-6); HEMATOCRIT 27.5 % (35.0-45.0); HEMOGLOBIN 8.6 g/dl (12.0-16.0); LYMPHOCYTES % (AUTO) 17.2 % (21-51); MEAN CORPUSCULAR HEMOGLOBIN 25.1 PG (27.0-31.0); MEAN CORPUSCULAR HGB CONC 31.5 g/dL (33.0-36.5); MEAN CORPUSCULAR VOLUME 79.9 FL (78-98); MEAN PLATELET VOLUME 9.2 FL (7.4-10.4); MONOCYTES # (AUTO) 1.3 X10'3 (0-0.9); MONOCYTES % (AUTO) 21.3 % (2-12); NEUTROPHILS # (AUTO) 3.4 X10'3 (1.8-7.7); NEUTROPHILS % (AUTO) 58.4 % (42-75); PLATELET COUNT 238 X10'3 (140-440); RED BLOOD COUNT 3.44 X10'6 (4.20-5.60); RED CELL DISTRIBUTION WIDTH 22.4 % (11.5-14.5); WHITE BLOOD COUNT 5.9 X10'3 (4.5-11.0)
[2019-06-25 05:08] LABS: ALANINE AMINOTRANSFERASE 40 U/L (12-78); ALBUMIN 2.4 G/DL (3.4-5.0); ALBUMIN/GLOBULIN RATIO 0.7 (1.1-1.5); ALKALINE PHOSPHATASE 73 IU/L (46-116); ANION GAP 3 (8-16); ASPARTATE AMINO TRANSFERASE 23 U/L (10-37); BILIRUBIN,TOTAL 0.3 MG/DL (0.1-1.0); BLOOD UREA NITROGEN 8 MG/DL (7-18); BUN/CREATININE RATIO 14.8 (6.6-38.0); CALCIUM 9.2 MG/DL (8.5-10.1); CHLORIDE 110 MMOL/L (99-107); CREATININE 0.54 MG/DL (0.40-0.90); GLUCOSE 105 MG/DL (70-104); MAGNESIUM 1.9 MG/DL (1.5-2.4); PHOSPHORUS 5.5 MG/DL (2.3-4.5); POTASSIUM 4.2 MMOL/L (3.5-5.1); PREALBUMIN 13.4 MG/DL (19-36); SODIUM 146 MMOL/L (135-145); TOTAL CARBON DIOXIDE 32.9 MMOL/L (24-32); TOTAL PROTEIN 5.7 G/DL (6.4-8.2); eGFR > 90 ML/MIN
--- NOTE | 2019-06-25 07:00 | NUR ---
Pt quite agitated. Pt pulling on lines, pulled off cardiac monitor and O2 monitor multiple times. Call to April and obtained an order for soft restraints. Restraints applied
[2019-06-25] MEDS: dexmedetomidin/NS 400mcg/100ml 100 ML IV SCH ×3 (07:49→19:30)
[2019-06-25] MEDS ORDERED: MULTIVIT-MIN/FERROUS GLUCONATE 9 MG/15 ML LIQUID PO SCH (08:00)
[2019-06-25] MEDS: K, MAG and/or Phos replacement - Verify level? MC SCH (08:00)
[2019-06-25] MEDS: normal saline 1000ml 1,000 ML IV SCH ×2 (08:05→19:08)
[2019-06-25] MEDS: folic acid 1mg/0.2ml inj IV SCH (08:24)
[2019-06-25] MEDS: haloperidol lactate 5mg/ml inj IM PRN ×2 (08:25→21:56)
[2019-06-25] MEDS: thiamine 100mg/ml 2ml inj. IV SCH (08:27)
[2019-06-25] MEDS: magnesium Cl slow-release 64mg tablet PO SCH ×2 (08:28→19:11)
[2019-06-25] MEDS: pantoprazole 40mg Tablet.DR PO SCH (08:28)
[2019-06-25] MEDS: atenolol 50mg tablet OGT SCH (08:29)
[2019-06-25] MEDS: heparin, porcine 5000 units/ml vial SQ SCH ×2 (08:29→19:08)
[2019-06-25 09:03] LABS: TOTAL CELLS COUNTED 100
[2019-06-25 09:04] LABS: ANISOCYTOSIS 3+; HYPOCHROMASIA 1+; MICROCYTOSIS 1+; PLATELET ESTIMATE NORMAL
[2019-06-25 09:05] LABS: POLYCHROMASIA FEW
--- NOTE | 2019-06-25 10:36 | NUR ---
Urine sample collected and sent to lab
[2019-06-25 11:04] LABS: COLOR,URINE YELLOW (Yellow); GLUCOSE, URINE NEGATIVE (Neg); KETONES,URINE NEGATIVE (Neg); LEUKOCYTE ESTERASE ,URINE NEGATIVE (Neg); NITRITES, URINE NEGATIVE (Neg); OCCULT BLOOD,URINE NEGATIVE (Neg); PROTEIN,URINE NEGATIVE (Neg); UROBILINOGEN,URINE 0.2 E.U/dL (0.2-1.0)
[2019-06-25 11:09] LABS: CLARITY,URINE SLIGHTLY CLOUDY (Clear); UA COLLECTION TYPE FOLEY CATH
[2019-06-25 11:10] LABS: BACTERIA,URINE NONE SEEN /HPF (Neg); RBC,URINE 0-2 /HPF (0-2); WBC,URINE 0-4 /HPF (0-4)
[2019-06-25 11:11] LABS: MUCUS STRANDS FEW /LPF (Neg); RENAL CELLS, URINE FEW /HPF; SQUAMOUS EPITHELIAL CELL,UR FEW /LPF (FEW); TRANSITIONAL EPI CELLS,URINE MODERATE /HPF
[2019-06-25] MEDS ORDERED: Neutra Phos packet OGT PRN (11:15)
--- NOTE | 2019-06-25 12:11 | NUR ---
Reassessment: Pt passed f/u BSS today but to remain NPO only continue NGTF for nutrition r/t ALOC per installation specialist at rounds. Precedex to restart today given pt agitation. LBM 06/23. Pt tolerating EN at goal. Per MD; concerns for possible sepsis. Current wt bed scale increased to 73kg from prior 66kg bed scale wts w/ only ~700ml positive fluid balance documented past 4 days; likely inaccurate. Updated BMI 23. Will continue to use 66kg for nutrition recs. Currently meeting protein needs IF infection present; will monitor for additional protein needs this admit pending further PALB. Recommend: 1. continuous tube feeding using Jevity 1.2 starting at 10 ml/hr and advance as tolerated by 20 ml q 8 hours to goal rate of 60 ml/hr will provide total volume 1440 ml, 1728 cals, 80 g protein, 1166 ml water. 2. additional water flush 200 ml q 4 hours 3. daily weights, prealbumin q Monday and 4. Pureed diet with thin liquids per ST recs; continue NPO and NGTF per MD recs 5. IF sepsis; consider additional protein recs pending further PALB results Addendum: 06/25/19 at [address] Amended: Links added.
[2019-06-25] MEDS: insulin regular, human U-100 3ml vial - multi-dose SQ SCH ×2 (14:19→20:40)
[2019-06-25] MEDS: insulin glargine (Lantus) pen - multi-dose SQ SCH (20:39)
--- NOTE | 2019-06-25 21:30 | NUR ---
left IV infiltrated. IV removed, unable to place a new IV at this time. HOBBING MACHINE OPERATOR aware. pt given po ativan and IM haldol to help calm patient so an attempt can be made to place IV.
[2019-06-25] MEDS ORDERED: LORazepam 1 MG tablet NG ONE (22:05)
[2019-06-26] VITALS (24 sets, daily range): BP systolic 87–150; BP diastolic 46–93
[2019-06-26] MEDS: LORazepam 2 mg/ml vial IV PRN ×6 (01:54→23:36)
[2019-06-26] MEDS: ipratropium/albuterol 3ml nebule NEB SCH ×4 (02:10→21:18)
[2019-06-26] MEDS: normal saline 1000ml 1,000 ML IV SCH ×2 (04:05→14:05)
[2019-06-26 04:59] LABS: BASOPHILS # (AUTO) 0.1 X10'3 (0-0.2); EOSINOPHILS # (AUTO) 0.1 X10'3 (0-0.9); EOSINOPHILS % (AUTO) 2.5 % (0-6); HEMATOCRIT 28.2 % (35.0-45.0); HEMOGLOBIN 8.9 g/dl (12.0-16.0); LYMPHOCYTES % (AUTO) 18.2 % (21-51); MEAN CORPUSCULAR HEMOGLOBIN 24.9 PG (27.0-31.0); MEAN CORPUSCULAR HGB CONC 31.4 g/dL (33.0-36.5); MEAN CORPUSCULAR VOLUME 79.3 FL (78-98); MEAN PLATELET VOLUME 9.4 FL (7.4-10.4); MONOCYTES # (AUTO) 1.2 X10'3 (0-0.9); NEUTROPHILS # (AUTO) 3.1 X10'3 (1.8-7.7); NEUTROPHILS % (AUTO) 57.3 % (42-75); PLATELET COUNT 260 X10'3 (140-440); RED BLOOD COUNT 3.56 X10'6 (4.20-5.60); RED CELL DISTRIBUTION WIDTH 22.6 % (11.5-14.5); WHITE BLOOD COUNT 5.5 X10'3 (4.5-11.0)
[2019-06-26 05:27] LABS: ALANINE AMINOTRANSFERASE 30 U/L (12-78); ALBUMIN 2.4 G/DL (3.4-5.0); ALBUMIN/GLOBULIN RATIO 0.7 (1.1-1.5); ALKALINE PHOSPHATASE 72 IU/L (46-116); ANION GAP 8 (8-16); ASPARTATE AMINO TRANSFERASE 22 U/L (10-37); BILIRUBIN,TOTAL 0.4 MG/DL (0.1-1.0); BLOOD UREA NITROGEN 10 MG/DL (7-18); BUN/CREATININE RATIO 19.6 (6.6-38.0); CALCIUM 9.2 MG/DL (8.5-10.1); CHLORIDE 107 MMOL/L (99-107); CREATININE 0.51 MG/DL (0.40-0.90); GLUCOSE 121 MG/DL (70-104); MAGNESIUM 1.9 MG/DL (1.5-2.4); PHOSPHORUS 5.4 MG/DL (2.3-4.5); POTASSIUM 3.6 MMOL/L (3.5-5.1); SODIUM 144 MMOL/L (135-145); TOTAL CARBON DIOXIDE 28.7 MMOL/L (24-32); TOTAL PROTEIN 5.8 G/DL (6.4-8.2); eGFR > 90 ML/MIN
[2019-06-26] MEDS: dexmedetomidin/NS 400mcg/100ml 100 ML IV SCH ×3 (06:40→18:02)
[2019-06-26 07:48] LABS: PLATELET ESTIMATE NORMAL
[2019-06-26 07:49] LABS: ANISOCYTOSIS 3+; MICROCYTOSIS 1+
[2019-06-26 07:52] LABS: HYPOCHROMASIA 2+
[2019-06-26] MEDS: magnesium Cl slow-release 64mg tablet PO SCH ×2 (08:00→20:00)
[2019-06-26] MEDS: K, MAG and/or Phos replacement - Verify level? MC SCH (08:00)
[2019-06-26] MEDS: folic acid 1mg/0.2ml inj IV SCH (08:00)
[2019-06-26] MEDS: pantoprazole 40 MG vial IV SCH (08:02)
[2019-06-26] MEDS: atenolol 50mg tablet OGT SCH (08:02)
[2019-06-26] MEDS: MULTIVIT-MIN/FERROUS GLUCONATE 9 MG/15 ML LIQUID OGT SCH (08:02)
[2019-06-26] MEDS: heparin, porcine 5000 units/ml vial SQ SCH ×2 (08:02→19:56)
[2019-06-26] MEDS ORDERED: furosemide 20 MG/2 ML vial IV ONE (08:45)
[2019-06-26] MEDS: haloperidol lactate 5mg/ml inj IM PRN ×2 (08:51→16:26)
[2019-06-26 09:05] LABS: TOTAL CELLS COUNTED 100
[2019-06-26] MEDS: insulin regular, human U-100 3ml vial - multi-dose SQ SCH (09:21)
[2019-06-26] MEDS: thiamine inj. 100 MG in normal saline 100ml IV soln 99 ML IV SCH (09:47)
[2019-06-26] MEDS: levoFLOXACIN-Levaquin 500mg/D5 100 ML IV SCH (11:59)
--- NOTE | 2019-06-26 11:59 | NUR ---
F/u: Pt pulled out all lines and NG r/t ALOC; new NG placed today for nutrition. Addendum: 06/26/19 at [address] Amended: Links added.
--- NOTE | 2019-06-26 18:00 | NUR ---
Patient in room CICU 2009. I have received report from Art, RN and had the opportunity to ask questions and assume patient care.
[2019-06-26] MEDS: insulin glargine (Lantus) pen - multi-dose SQ SCH (20:55)
--- NOTE | 2019-06-26 22:25 | NUR ---
Notified April of pt's low BP; ordered 500 ml fluid bolus. Order carried out.
[2019-06-26] MEDS ORDERED: normal saline 500ml IV soln 500 ML IV ONE (22:30)
[2019-06-27] VITALS (24 sets, daily range): BP systolic 83–136; BP diastolic 43–66
[2019-06-27] MEDS: dexmedetomidin/NS 400mcg/100ml 100 ML IV SCH ×3 (01:11→17:11)
[2019-06-27] MEDS: insulin regular, human U-100 3ml vial - multi-dose SQ SCH ×3 (02:27→21:47)
[2019-06-27] MEDS: ipratropium/albuterol 3ml nebule NEB SCH ×4 (03:10→21:17)
[2019-06-27] MEDS: LORazepam 2 mg/ml vial IV PRN ×5 (03:34→23:47)
[2019-06-27 04:34] LABS: BASOPHILS % (AUTO) 0.7 % (0-1); EOSINOPHILS # (AUTO) 0.2 X10'3 (0-0.9); EOSINOPHILS % (AUTO) 2.9 % (0-6); HEMATOCRIT 26.8 % (35.0-45.0); HEMOGLOBIN 8.6 g/dl (12.0-16.0); LYMPHOCYTES # (AUTO) 1.2 X10'3 (1.1-4.8); LYMPHOCYTES % (AUTO) 23.7 % (21-51); MEAN CORPUSCULAR HEMOGLOBIN 25.6 PG (27.0-31.0); MEAN CORPUSCULAR VOLUME 79.9 FL (78-98); MEAN PLATELET VOLUME 8.8 FL (7.4-10.4); MONOCYTES # (AUTO) 0.8 X10'3 (0-0.9); MONOCYTES % (AUTO) 15.9 % (2-12); NEUTROPHILS # (AUTO) 2.9 X10'3 (1.8-7.7); NEUTROPHILS % (AUTO) 56.8 % (42-75); PLATELET COUNT 242 X10'3 (140-440); RED BLOOD COUNT 3.35 X10'6 (4.20-5.60); RED CELL DISTRIBUTION WIDTH 21.6 % (11.5-14.5); WHITE BLOOD COUNT 5.2 X10'3 (4.5-11.0)
[2019-06-27 04:54] LABS: ALANINE AMINOTRANSFERASE 25 U/L (12-78); ALBUMIN/GLOBULIN RATIO 0.6 (1.1-1.5); ALKALINE PHOSPHATASE 61 IU/L (46-116); ANION GAP 3 (8-16); ASPARTATE AMINO TRANSFERASE 16 U/L (10-37); BILIRUBIN,TOTAL 0.3 MG/DL (0.1-1.0); BLOOD UREA NITROGEN 14 MG/DL (7-18); BUN/CREATININE RATIO 23.7 (6.6-38.0); CALCIUM 8.9 MG/DL (8.5-10.1); CHLORIDE 108 MMOL/L (99-107); CREATININE 0.59 MG/DL (0.40-0.90); GLUCOSE 90 MG/DL (70-104); MAGNESIUM 1.9 MG/DL (1.5-2.4); POTASSIUM 3.8 MMOL/L (3.5-5.1); SODIUM 143 MMOL/L (135-145); TOTAL CARBON DIOXIDE 31.7 MMOL/L (24-32); TOTAL PROTEIN 5.4 G/DL (6.4-8.2); eGFR > 90 ML/MIN
[2019-06-27 05:29] LABS: ANISOCYTOSIS 2+; PLATELET ESTIMATE NORMAL; TOTAL CELLS COUNTED 100
[2019-06-27 05:30] LABS: MICROCYTOSIS 1+
--- NOTE | 2019-06-27 06:36 | NUR ---
Problems reprioritized. Patient report given, questions answered & plan of care reviewed with JEREMI Holman.
[2019-06-27] MEDS: K, MAG and/or Phos replacement - Verify level? MC SCH (08:00)
[2019-06-27] MEDS: atenolol 50mg tablet OGT SCH (08:00)
[2019-06-27] MEDS: MULTIVIT-MIN/FERROUS GLUCONATE 9 MG/15 ML LIQUID OGT SCH (08:04)
[2019-06-27] MEDS: magnesium Cl slow-release 64mg tablet PO SCH ×2 (08:04→20:00)
[2019-06-27] MEDS: pantoprazole 40 MG vial IV SCH (08:04)
[2019-06-27] MEDS: heparin, porcine 5000 units/ml vial SQ SCH ×2 (08:05→21:32)
[2019-06-27] MEDS: levoFLOXACIN-Levaquin 500mg/D5 100 ML IV SCH (08:06)
[2019-06-27] MEDS: thiamine inj. 100 MG in normal saline 100ml IV soln 99 ML IV SCH (08:06)
[2019-06-27] MEDS: folic acid 1mg/0.2ml inj IV SCH (10:48)
--- NOTE | 2019-06-27 19:00 | NUR ---
Patient in room CICU 2009. I have received report from Rekha BLOOD and had the opportunity to ask questions and assume patient care.
[2019-06-27] MEDS: insulin glargine (Lantus) pen - multi-dose SQ SCH (21:45)
[2019-06-28] VITALS (24 sets, daily range): BP systolic 114–158; BP diastolic 49–77
[2019-06-28] MEDS: LORazepam 2 mg/ml vial IV PRN ×6 (00:28→22:17)
[2019-06-28] MEDS: ipratropium/albuterol 3ml nebule NEB SCH ×4 (02:32→20:33)
[2019-06-28] MEDS: insulin regular, human U-100 3ml vial - multi-dose SQ SCH ×4 (02:41→20:28)
[2019-06-28 05:38] LABS: BASOPHILS % (AUTO) 0.4 % (0-1); EOSINOPHILS # (AUTO) 0.1 X10'3 (0-0.9); EOSINOPHILS % (AUTO) 1.3 % (0-6); HEMATOCRIT 26.4 % (35.0-45.0); HEMOGLOBIN 8.4 g/dl (12.0-16.0); MEAN CORPUSCULAR HEMOGLOBIN 25.2 PG (27.0-31.0); MEAN CORPUSCULAR HGB CONC 31.7 g/dL (33.0-36.5); MEAN CORPUSCULAR VOLUME 79.4 FL (78-98); MEAN PLATELET VOLUME 9.7 FL (7.4-10.4); NEUTROPHILS # (AUTO) 5.8 X10'3 (1.8-7.7); NEUTROPHILS % (AUTO) 72.3 % (42-75); PLATELET COUNT 281 X10'3 (140-440); RED BLOOD COUNT 3.33 X10'6 (4.20-5.60); RED CELL DISTRIBUTION WIDTH 22.1 % (11.5-14.5)
[2019-06-28 06:03] LABS: ALANINE AMINOTRANSFERASE 22 U/L (12-78); ALBUMIN 2.3 G/DL (3.4-5.0); ALBUMIN/GLOBULIN RATIO 0.7 (1.1-1.5); ALKALINE PHOSPHATASE 65 IU/L (46-116); ANION GAP 7 (8-16); ASPARTATE AMINO TRANSFERASE 15 U/L (10-37); BILIRUBIN,TOTAL 0.2 MG/DL (0.1-1.0); BLOOD UREA NITROGEN 9 MG/DL (7-18); BUN/CREATININE RATIO 16.1 (6.6-38.0); CALCIUM 8.9 MG/DL (8.5-10.1); CHLORIDE 109 MMOL/L (99-107); CREATININE 0.56 MG/DL (0.40-0.90); GLUCOSE 98 MG/DL (70-104); MAGNESIUM 1.9 MG/DL (1.5-2.4); PHOSPHORUS 4.5 MG/DL (2.3-4.5); POTASSIUM 3.7 MMOL/L (3.5-5.1); SODIUM 144 MMOL/L (135-145); TOTAL CARBON DIOXIDE 28.3 MMOL/L (24-32); TOTAL PROTEIN 5.8 G/DL (6.4-8.2); eGFR > 90 ML/MIN
--- NOTE | 2019-06-28 06:25 | NUR ---
Patient in room CICU 2009. I have received report from Jethro and had the opportunity to ask questions and assume patient care.
[2019-06-28] MEDS: MULTIVIT-MIN/FERROUS GLUCONATE 9 MG/15 ML LIQUID OGT SCH (07:11)
[2019-06-28] MEDS: pantoprazole 40 MG vial IV SCH (07:12)
[2019-06-28] MEDS: heparin, porcine 5000 units/ml vial SQ SCH ×2 (07:12→20:30)
[2019-06-28] MEDS: levoFLOXACIN-Levaquin 500mg/D5 100 ML IV SCH (07:12)
[2019-06-28] MEDS: atenolol 50mg tablet OGT SCH (07:12)
[2019-06-28] MEDS: magnesium Cl slow-release 64mg tablet PO SCH ×3 (07:12→20:00)
[2019-06-28] MEDS: thiamine inj. 100 MG in normal saline 100ml IV soln 99 ML IV SCH (07:12)
[2019-06-28] MEDS: folic acid 1mg/0.2ml inj IV SCH (07:13)
[2019-06-28] MEDS: K, MAG and/or Phos replacement - Verify level? MC SCH (07:13)
[2019-06-28] MEDS: dexmedetomidin/NS 400mcg/100ml 100 ML IV SCH (07:42)
[2019-06-28] MEDS ORDERED: ziprasidone IM 20mg inj **IM only IM ONE (08:50)
[2019-06-28 09:05] LABS: ANISOCYTOSIS 3+; HYPOCHROMASIA 1+; MICROCYTOSIS 1+; PLATELET ESTIMATE NORMAL; POLYCHROMASIA 1+
--- NOTE | 2019-06-28 11:58 | NUR ---
Reassessment: TF has been resumed and pt tolerating at goal rate with GRV WNL. No documentation of PO intake however per bedside RN at critical care rounds pt consumed roughly 50% of breakfast this morning. RD consulted for f/u BSS. [facility] 06/26. Will continue to follow closely. Recommend: 1. continuous tube feeding using Jevity 1.2 starting at 10 ml/hr and advance as tolerated by 20 ml q 8 hours to goal rate of 60 ml/hr will provide total volume 1440 ml, 1728 cals, 80 g protein, 1166 ml water. 2. additional water flush 200 ml q 4 hours 3. daily weights, prealbumin q Monday and 4. Pureed diet with thin liquids per recs; pending BSS reassessment for f/u ST recs 5. Continue TF until pt able to consistently tolerate average 65% PO intake of meals Addendum: 06/28/19 at [address] Amended: Links added.
--- NOTE | 2019-06-28 18:24 | NUR ---
Problems reprioritized. Patient report given, questions answered & plan of care reviewed with Angélica.
[2019-06-28] MEDS: insulin glargine (Lantus) pen - multi-dose SQ SCH (20:27)
[2019-06-29] VITALS (23 sets, daily range): BP systolic 121–186; BP diastolic 49–92
[2019-06-29] MEDS: insulin regular, human U-100 3ml vial - multi-dose SQ SCH ×4 (02:06→20:42)
[2019-06-29] MEDS: ipratropium/albuterol 3ml nebule NEB SCH ×4 (02:41→20:15)
[2019-06-29 05:13] LABS: BASOPHILS # (AUTO) 0.1 X10'3 (0-0.2); BASOPHILS % (AUTO) 0.7 % (0-1); EOSINOPHILS # (AUTO) 0.1 X10'3 (0-0.9); EOSINOPHILS % (AUTO) 0.9 % (0-6); HEMATOCRIT 30.6 % (35.0-45.0); HEMOGLOBIN 9.7 g/dl (12.0-16.0); LYMPHOCYTES # (AUTO) 1.2 X10'3 (1.1-4.8); LYMPHOCYTES % (AUTO) 13.2 % (21-51); MEAN CORPUSCULAR HEMOGLOBIN 25.2 PG (27.0-31.0); MEAN CORPUSCULAR HGB CONC 31.7 g/dL (33.0-36.5); MEAN CORPUSCULAR VOLUME 79.5 FL (78-98); MEAN PLATELET VOLUME 9.5 FL (7.4-10.4); MONOCYTES # (AUTO) 1.1 X10'3 (0-0.9); MONOCYTES % (AUTO) 11.7 % (2-12); NEUTROPHILS # (AUTO) 6.8 X10'3 (1.8-7.7); NEUTROPHILS % (AUTO) 73.5 % (42-75); PLATELET COUNT 372 X10'3 (140-440); RED BLOOD COUNT 3.85 X10'6 (4.20-5.60); RED CELL DISTRIBUTION WIDTH 22.4 % (11.5-14.5); WHITE BLOOD COUNT 9.3 X10'3 (4.5-11.0)
[2019-06-29 05:35] LABS: ALANINE AMINOTRANSFERASE 27 U/L (12-78); ALBUMIN 2.6 G/DL (3.4-5.0); ALBUMIN/GLOBULIN RATIO 0.7 (1.1-1.5); ALKALINE PHOSPHATASE 77 IU/L (46-116); ANION GAP 8 (8-16); ASPARTATE AMINO TRANSFERASE 22 U/L (10-37); BILIRUBIN,TOTAL 0.3 MG/DL (0.1-1.0); BLOOD UREA NITROGEN 10 MG/DL (7-18); BUN/CREATININE RATIO 17.9 (6.6-38.0); CALCIUM 9.4 MG/DL (8.5-10.1); CHLORIDE 109 MMOL/L (99-107); CREATININE 0.56 MG/DL (0.40-0.90); GLUCOSE 104 MG/DL (70-104); MAGNESIUM 1.9 MG/DL (1.5-2.4); PHOSPHORUS 4.3 MG/DL (2.3-4.5); POTASSIUM 3.7 MMOL/L (3.5-5.1); SODIUM 146 MMOL/L (135-145); TOTAL CARBON DIOXIDE 29.1 MMOL/L (24-32); TOTAL PROTEIN 6.6 G/DL (6.4-8.2); eGFR > 90 ML/MIN
[2019-06-29] MEDS: magnesium Cl slow-release 64mg tablet PO SCH ×2 (08:00→20:44)
[2019-06-29] MEDS: K, MAG and/or Phos replacement - Verify level? MC SCH (08:00)
[2019-06-29] MEDS: folic acid 1mg/0.2ml inj IV SCH (08:00)
[2019-06-29] MEDS: MULTIVIT-MIN/FERROUS GLUCONATE 9 MG/15 ML LIQUID OGT SCH (09:04)
[2019-06-29] MEDS: levoFLOXACIN-Levaquin 500mg/D5 100 ML IV SCH (09:04)
[2019-06-29] MEDS: thiamine inj. 100 MG in normal saline 100ml IV soln 99 ML IV SCH (09:04)
[2019-06-29] MEDS: atenolol 50mg tablet OGT SCH (09:05)
[2019-06-29] MEDS: pantoprazole 40 MG vial IV SCH (09:05)
[2019-06-29] MEDS: heparin, porcine 5000 units/ml vial SQ SCH ×2 (09:06→20:36)
--- NOTE | 2019-06-29 19:00 | NUR ---
Patient in room CICU 2009. I have received report from Yodit BLOOD and had the opportunity to ask questions and assume patient care.
[2019-06-29] MEDS: insulin glargine (Lantus) pen - multi-dose SQ SCH (20:44)
--- NOTE | 2019-06-29 21:41 | NUR ---
Agree with Garrett SN Physical assessment.
[2019-06-30] VITALS (15 sets, daily range): BP systolic 80–156; BP diastolic 41–77
[2019-06-30] MEDS: insulin regular, human U-100 3ml vial - multi-dose SQ SCH ×2 (01:53→20:26)
[2019-06-30] MEDS: morphine 2 MG/ML inj. syringe IV PRN (02:00)
[2019-06-30] MEDS: ipratropium/albuterol 3ml nebule NEB SCH ×4 (02:10→21:12)
[2019-06-30 04:59] LABS: BASOPHILS # (AUTO) 0.1 X10'3 (0-0.2); BASOPHILS % (AUTO) 1.2 % (0-1); EOSINOPHILS # (AUTO) 0.1 X10'3 (0-0.9); EOSINOPHILS % (AUTO) 1.6 % (0-6); HEMATOCRIT 30.4 % (35.0-45.0); HEMOGLOBIN 9.7 g/dl (12.0-16.0); LYMPHOCYTES # (AUTO) 1.7 X10'3 (1.1-4.8); LYMPHOCYTES % (AUTO) 19.4 % (21-51); MEAN CORPUSCULAR HEMOGLOBIN 25.1 PG (27.0-31.0); MEAN CORPUSCULAR HGB CONC 31.8 g/dL (33.0-36.5); MEAN CORPUSCULAR VOLUME 79.1 FL (78-98); MEAN PLATELET VOLUME 9.7 FL (7.4-10.4); MONOCYTES % (AUTO) 11.5 % (2-12); NEUTROPHILS # (AUTO) 5.8 X10'3 (1.8-7.7); NEUTROPHILS % (AUTO) 66.3 % (42-75); PLATELET COUNT 425 X10'3 (140-440); RED BLOOD COUNT 3.85 X10'6 (4.20-5.60); RED CELL DISTRIBUTION WIDTH 22.2 % (11.5-14.5); WHITE BLOOD COUNT 8.8 X10'3 (4.5-11.0)
[2019-06-30 05:18] LABS: ALANINE AMINOTRANSFERASE 26 U/L (12-78); ALBUMIN 2.5 G/DL (3.4-5.0); ALBUMIN/GLOBULIN RATIO 0.6 (1.1-1.5); ALKALINE PHOSPHATASE 79 IU/L (46-116); ANION GAP 7 (8-16); ASPARTATE AMINO TRANSFERASE 19 U/L (10-37); BILIRUBIN,TOTAL 0.3 MG/DL (0.1-1.0); BLOOD UREA NITROGEN 13 MG/DL (7-18); CALCIUM 9.2 MG/DL (8.5-10.1); CHLORIDE 107 MMOL/L (99-107); CREATININE 0.62 MG/DL (0.40-0.90); GLUCOSE 129 MG/DL (70-104); MAGNESIUM 2.1 MG/DL (1.5-2.4); PHOSPHORUS 5.1 MG/DL (2.3-4.5); POTASSIUM 4.1 MMOL/L (3.5-5.1); SODIUM 141 MMOL/L (135-145); TOTAL CARBON DIOXIDE 26.8 MMOL/L (24-32); TOTAL PROTEIN 6.6 G/DL (6.4-8.2); eGFR > 90 ML/MIN
[2019-06-30] MEDS: K, MAG and/or Phos replacement - Verify level? MC SCH (08:00)
[2019-06-30] MEDS: folic acid 1mg/0.2ml inj IV SCH (08:00)
[2019-06-30] MEDS: MULTIVIT-MIN/FERROUS GLUCONATE 9 MG/15 ML LIQUID OGT SCH (08:03)
[2019-06-30] MEDS: magnesium Cl slow-release 64mg tablet PO SCH ×2 (08:03→20:00)
[2019-06-30] MEDS: levoFLOXACIN-Levaquin 500mg/D5 100 ML IV SCH (08:04)
[2019-06-30] MEDS: thiamine inj. 100 MG in normal saline 100ml IV soln 99 ML IV SCH (08:04)
[2019-06-30] MEDS: atenolol 50mg tablet OGT SCH (08:04)
[2019-06-30] MEDS: heparin, porcine 5000 units/ml vial SQ SCH ×2 (08:06→20:23)
[2019-06-30] MEDS: pantoprazole 40 MG vial IV SCH (08:09)
--- NOTE | 2019-06-30 10:54 | NUR ---
Patient in room CICU 2009. I have received report from Hannah BLOOD and had the opportunity to ask questions and assume patient care. Awaiting patient's arrival to the unit.
--- NOTE | 2019-06-30 11:00 | NUR ---
report call to Yash on PCU for transfer. Pt is stable but confused. VSS.and IV is S/L. bedside update given
--- NOTE | 2019-06-30 11:20 | NUR ---
Patient arrived to the unit accompanied by ICU personnel. Telemetry monitoring continued, 2 RN skin check completed, patient oriented to room and call light. Will continue to monitor.
--- NOTE | 2019-06-30 18:07 | NUR ---
Problems reprioritized. Patient report given, questions answered & plan of care reviewed with Skyla BLOOD.
--- NOTE | 2019-06-30 18:16 | NUR ---
Patient in room PCU 3023. I have received report from Missy BLOOD and had the opportunity to ask questions and assume patient care.
[2019-06-30] MEDS: insulin glargine (Lantus) pen - multi-dose SQ SCH (20:30)
[2019-07-01] VITALS (7 sets, daily range): BP systolic 77–133; BP diastolic 34–60
[2019-07-01] MEDS: ipratropium/albuterol 3ml nebule NEB SCH ×3 (03:16→15:00)
[2019-07-01 05:26] LABS: BASOPHILS # (AUTO) 0.1 X10'3 (0-0.2); BASOPHILS % (AUTO) 1.7 % (0-1); EOSINOPHILS # (AUTO) 0.1 X10'3 (0-0.9); EOSINOPHILS % (AUTO) 1.6 % (0-6); HEMATOCRIT 28.8 % (35.0-45.0); HEMOGLOBIN 9.3 g/dl (12.0-16.0); LYMPHOCYTES % (AUTO) 24.6 % (21-51); MEAN CORPUSCULAR HEMOGLOBIN 25.7 PG (27.0-31.0); MEAN CORPUSCULAR HGB CONC 32.3 g/dL (33.0-36.5); MEAN CORPUSCULAR VOLUME 79.6 FL (78-98); MEAN PLATELET VOLUME 9.9 FL (7.4-10.4); MONOCYTES # (AUTO) 0.7 X10'3 (0-0.9); MONOCYTES % (AUTO) 8.6 % (2-12); NEUTROPHILS # (AUTO) 5.2 X10'3 (1.8-7.7); NEUTROPHILS % (AUTO) 63.5 % (42-75); PLATELET COUNT 417 X10'3 (140-440); RED BLOOD COUNT 3.62 X10'6 (4.20-5.60); RED CELL DISTRIBUTION WIDTH 21.8 % (11.5-14.5); WHITE BLOOD COUNT 8.2 X10'3 (4.5-11.0)
--- NOTE | 2019-07-01 05:49 | NUR ---
pt rested through the night
[2019-07-01 06:10] LABS: ALANINE AMINOTRANSFERASE 24 U/L (12-78); ALBUMIN 2.4 G/DL (3.4-5.0); ALBUMIN/GLOBULIN RATIO 0.6 (1.1-1.5); ALKALINE PHOSPHATASE 70 IU/L (46-116); ANION GAP 8 (8-16); ASPARTATE AMINO TRANSFERASE 16 U/L (10-37); BILIRUBIN,TOTAL 0.3 MG/DL (0.1-1.0); BLOOD UREA NITROGEN 22 MG/DL (7-18); BUN/CREATININE RATIO 37.3 (6.6-38.0); CALCIUM 9.2 MG/DL (8.5-10.1); CHLORIDE 106 MMOL/L (99-107); CREATININE 0.59 MG/DL (0.40-0.90); GLUCOSE 126 MG/DL (70-104); MAGNESIUM 2.1 MG/DL (1.5-2.4); PHOSPHORUS 5.7 MG/DL (2.3-4.5); POTASSIUM 4.3 MMOL/L (3.5-5.1); SODIUM 141 MMOL/L (135-145); TOTAL CARBON DIOXIDE 26.7 MMOL/L (24-32); TOTAL PROTEIN 6.2 G/DL (6.4-8.2); eGFR > 90 ML/MIN
--- NOTE | 2019-07-01 06:20 | NUR ---
Patient in room U 3023. I have received report from and had the opportunity to ask questions and assume patient care. Addendum: 07/01/19 at 0631 by Cindy Maciel RN Skyla BLOOD
--- NOTE | 2019-07-01 06:21 | NUR ---
Problems reprioritized. Patient report given, questions answered & plan of care reviewed with Vee BLOOD.
[2019-07-01] MEDS: atenolol 50mg tablet OGT SCH (08:00)
[2019-07-01] MEDS: K, MAG and/or Phos replacement - Verify level? MC SCH (08:00)
[2019-07-01 08:08] LABS: TOTAL CELLS COUNTED 100
[2019-07-01 08:09] LABS: ANISOCYTOSIS 3+; MICROCYTOSIS 1+; PLATELET ESTIMATE NORMAL
[2019-07-01 08:10] LABS: HYPOCHROMASIA 2+; LARGE PLATELETS FEW; TOXIC GRANULATION 1+
[2019-07-01] MEDS: folic acid 1mg/0.2ml inj IV SCH (08:42)
[2019-07-01] MEDS: MULTIVIT-MIN/FERROUS GLUCONATE 9 MG/15 ML LIQUID OGT SCH (08:42)
[2019-07-01] MEDS: magnesium Cl slow-release 64mg tablet PO SCH ×2 (08:43→20:00)
[2019-07-01] MEDS: heparin, porcine 5000 units/ml vial SQ SCH ×2 (08:43→20:23)
[2019-07-01] MEDS: pantoprazole 40 MG vial IV SCH (08:43)
[2019-07-01] MEDS: levoFLOXACIN-Levaquin 500mg/D5 100 ML IV SCH (08:44)
[2019-07-01] MEDS: insulin regular, human U-100 3ml vial - multi-dose SQ SCH (09:10)
--- NOTE | 2019-07-01 11:20 | NUR ---
Collaborated with Dr. Cardenas re this patient, due to patient no longer being NPO, she is eating mechanical soft. Per Dr. Cardenas, hold the tube feeding for now, and check back with him later today. Will continue to monitor the patient closely.
[2019-07-01] MEDS: thiamine inj. 100 MG in normal saline 100ml IV soln 99 ML IV SCH (11:25)
[2019-07-01] MEDS: LORazepam 2 mg/ml vial IV PRN (14:27)
--- NOTE | 2019-07-01 16:14 | NUR ---
Reassessment: Pt tolerating TF at goal; currently using comparable Glucerna 1.2 as substitution while Jevity 1.2 out of stock until restocked. LBM 06/29. PO 50-75% one meal today improving. Will continue to monitor for PO diet tolerance. Recommend: 1. continuous tube feeding using Jevity 1.2 starting at 10 ml/hr and advance as tolerated by 20 ml q 8 hours to goal rate of 60 ml/hr will provide total volume 1440 ml, 1728 cals, 80 g protein, 1166 ml water. 2. additional water flush 200 ml q 4 hours 3. daily weights, prealbumin q Monday and 4. Pureed diet with thin liquids per ST recs; pending BSS reassessment for f/u ST recs 5. Continue TF until pt able to consistently tolerate average 65% PO intake of meals 6. Comparable TF substitution using Glucerna 1.2 at current goal rate and water flushes while Jevity 1.2 out of stock Addendum: 07/01/19 at [address] Amended: Links added.
--- NOTE | 2019-07-01 18:10 | NUR ---
Problems reprioritized. Patient report given, questions answered & plan of care reviewed with Skyla BLOOD.
[2019-07-01] MEDS: ondansetron/PF 4mg/2ml inj IV PRN (20:23)
[2019-07-01] MEDS: NYSTATIN CREAM - 30GM TUBE TP SCH (20:25)
[2019-07-01] MEDS: insulin glargine (Lantus) pen - multi-dose SQ SCH (20:57)
[2019-07-02 02:00] VITALS: BP 125/62
[2019-07-02 05:54] LABS: ALANINE AMINOTRANSFERASE 23 U/L (12-78); ALBUMIN 2.6 G/DL (3.4-5.0); ALBUMIN/GLOBULIN RATIO 0.7 (1.1-1.5); ALKALINE PHOSPHATASE 68 IU/L (46-116); ANION GAP 6 (8-16); ASPARTATE AMINO TRANSFERASE 15 U/L (10-37); BASOPHILS # (AUTO) 0.1 X10'3 (0-0.2); BILIRUBIN,TOTAL 0.4 MG/DL (0.1-1.0); BLOOD UREA NITROGEN 14 MG/DL (7-18); BUN/CREATININE RATIO 20.6 (6.6-38.0); CALCIUM 8.6 MG/DL (8.5-10.1); CHLORIDE 106 MMOL/L (99-107); CREATININE 0.68 MG/DL (0.40-0.90); EOSINOPHILS # (AUTO) 0.2 X10'3 (0-0.9); EOSINOPHILS % (AUTO) 2.4 % (0-6); GLUCOSE 81 MG/DL (70-104); HEMATOCRIT 27.7 % (35.0-45.0); HEMOGLOBIN 8.9 g/dl (12.0-16.0); LYMPHOCYTES # (AUTO) 1.7 X10'3 (1.1-4.8); LYMPHOCYTES % (AUTO) 25.9 % (21-51); MAGNESIUM 1.9 MG/DL (1.5-2.4); MEAN CORPUSCULAR HEMOGLOBIN 25.7 PG (27.0-31.0); MEAN CORPUSCULAR HGB CONC 32.2 g/dL (33.0-36.5); MEAN CORPUSCULAR VOLUME 79.7 FL (78-98); MEAN PLATELET VOLUME 9.8 FL (7.4-10.4); MONOCYTES # (AUTO) 0.6 X10'3 (0-0.9); MONOCYTES % (AUTO) 9.7 % (2-12); PLATELET COUNT 445 X10'3 (140-440); POTASSIUM 4.2 MMOL/L (3.5-5.1); RED BLOOD COUNT 3.48 X10'6 (4.20-5.60); RED CELL DISTRIBUTION WIDTH 22.1 % (11.5-14.5); SODIUM 139 MMOL/L (135-145); TOTAL CARBON DIOXIDE 26.8 MMOL/L (24-32); TOTAL PROTEIN 6.3 G/DL (6.4-8.2); WHITE BLOOD COUNT 6.5 X10'3 (4.5-11.0); eGFR 87 ML/MIN
[2019-07-02 06:00] VITALS: BP 94/44
--- NOTE | 2019-07-02 06:11 | NUR ---
Problems reprioritized. Patient report given, questions answered & plan of care reviewed with amanda BLOOD.
--- NOTE | 2019-07-02 06:12 | NUR ---
Patient in room PCU 3023. I have received report from Skyla BLOOD and had the opportunity to ask questions and assume patient care.
[2019-07-02 07:36] LABS: ANISOCYTOSIS 3+; HYPOCHROMASIA 1+; PLATELET ESTIMATE INCREASED; STOMATOCYTES 1+
[2019-07-02 07:37] LABS: MICROCYTOSIS 1+
[2019-07-02] MEDS: thiamine inj. 100 MG in normal saline 100ml IV soln 99 ML IV SCH (07:56)
[2019-07-02] MEDS: pantoprazole 40 MG vial IV SCH (07:57)
[2019-07-02] MEDS: folic acid 1mg/0.2ml inj IV SCH (07:57)
[2019-07-02] MEDS: heparin, porcine 5000 units/ml vial SQ SCH ×2 (07:57→19:51)
[2019-07-02] MEDS: MULTIVIT-MIN/FERROUS GLUCONATE 9 MG/15 ML LIQUID OGT SCH (07:57)
[2019-07-02] MEDS: magnesium Cl slow-release 64mg tablet PO SCH ×2 (07:57→19:52)
[2019-07-02] MEDS: ondansetron/PF 4mg/2ml inj IV PRN (07:57)
[2019-07-02] MEDS: K, MAG and/or Phos replacement - Verify level? MC SCH (08:00)
[2019-07-02] MEDS: atenolol 50mg tablet OGT SCH (08:00)
[2019-07-02] MEDS: NYSTATIN CREAM - 30GM TUBE TP SCH ×2 (08:08→19:52)
[2019-07-02] MEDS: levoFLOXACIN-Levaquin 500mg/D5 100 ML IV SCH (08:41)
[2019-07-02 11:00] VITALS: BP 103/42
[2019-07-02 15:00] VITALS: BP 120/46
--- NOTE | 2019-07-02 18:12 | NUR ---
Problems reprioritized. Patient report given, questions answered & plan of care reviewed with Skyla BLOOD.
[2019-07-02 18:51] VITALS: BP 125/57
[2019-07-02] MEDS: insulin glargine (Lantus) pen - multi-dose SQ SCH (18:59)
[2019-07-02] MEDS: LORazepam 2 mg/ml vial IV PRN (21:22)
[2019-07-02 23:00] VITALS: BP 108/39
[2019-07-03 02:54] VITALS: BP 108/57
[2019-07-03 04:56] LABS: BASOPHILS % (AUTO) 0.8 % (0-1); EOSINOPHILS # (AUTO) 0.2 X10'3 (0-0.9); EOSINOPHILS % (AUTO) 3.1 % (0-6); HEMATOCRIT 27.5 % (35.0-45.0); LYMPHOCYTES # (AUTO) 1.4 X10'3 (1.1-4.8); LYMPHOCYTES % (AUTO) 27.2 % (21-51); MEAN CORPUSCULAR HEMOGLOBIN 26.1 PG (27.0-31.0); MEAN CORPUSCULAR HGB CONC 32.8 g/dL (33.0-36.5); MEAN CORPUSCULAR VOLUME 79.5 FL (78-98); MEAN PLATELET VOLUME 9.3 FL (7.4-10.4); MONOCYTES # (AUTO) 0.6 X10'3 (0-0.9); MONOCYTES % (AUTO) 11.5 % (2-12); NEUTROPHILS # (AUTO) 2.9 X10'3 (1.8-7.7); NEUTROPHILS % (AUTO) 57.4 % (42-75); PLATELET COUNT 420 X10'3 (140-440); RED BLOOD COUNT 3.46 X10'6 (4.20-5.60); RED CELL DISTRIBUTION WIDTH 21.9 % (11.5-14.5)
[2019-07-03 05:20] LABS: ALANINE AMINOTRANSFERASE 17 U/L (12-78); ALBUMIN 2.7 G/DL (3.4-5.0); ALBUMIN/GLOBULIN RATIO 0.8 (1.1-1.5); ALKALINE PHOSPHATASE 65 IU/L (46-116); ANION GAP 10 (8-16); ASPARTATE AMINO TRANSFERASE 17 U/L (10-37); BILIRUBIN,TOTAL 0.4 MG/DL (0.1-1.0); BLOOD UREA NITROGEN 10 MG/DL (7-18); BUN/CREATININE RATIO 16.9 (6.6-38.0); CALCIUM 8.7 MG/DL (8.5-10.1); CHLORIDE 106 MMOL/L (99-107); CREATININE 0.59 MG/DL (0.40-0.90); GLUCOSE 89 MG/DL (70-104); MAGNESIUM 2.1 MG/DL (1.5-2.4); PHOSPHORUS 4.4 MG/DL (2.3-4.5); SODIUM 141 MMOL/L (135-145); TOTAL CARBON DIOXIDE 25.1 MMOL/L (24-32); TOTAL PROTEIN 6.3 G/DL (6.4-8.2); eGFR > 90 ML/MIN
--- NOTE | 2019-07-03 06:17 | NUR ---
Problems reprioritized. Patient report given, questions answered & plan of care reviewed with Shirley BLOOD.
[2019-07-03 07:00] VITALS: BP 129/56
[2019-07-03 07:38] LABS: PLATELET ESTIMATE NORMAL; STOMATOCYTES 1+
[2019-07-03] MEDS: multivitamins, therapeutics tablet PO SCH (08:00)
[2019-07-03] MEDS: K, MAG and/or Phos replacement - Verify level? MC SCH (08:00)
[2019-07-03] MEDS: thiamine inj. 100 MG in normal saline 100ml IV soln 99 ML IV SCH (08:00)
[2019-07-03] MEDS: pantoprazole 40 MG vial IV SCH (08:26)
[2019-07-03] MEDS: levoFLOXACIN-Levaquin 500mg/D5 100 ML IV SCH (08:26)
[2019-07-03] MEDS: heparin, porcine 5000 units/ml vial SQ SCH ×2 (08:27→21:26)
[2019-07-03] MEDS: magnesium Cl slow-release 64mg tablet PO SCH ×2 (08:27→21:25)
[2019-07-03] MEDS: NYSTATIN CREAM - 30GM TUBE TP SCH ×2 (08:28→21:26)
[2019-07-03] MEDS ORDERED: acetaminophen 325mg/10.15ml oral unit dose solution PO PRN ×2 (08:35)
[2019-07-03] MEDS ORDERED: MULTIVIT-MIN/FERROUS GLUCONATE 9 MG/15 ML LIQUID PO SCH (08:35)
[2019-07-03] MEDS ORDERED: atenolol 50mg tablet PO SCH (08:35)
[2019-07-03] MEDS ORDERED: Neutra Phos packet PO PRN (08:36)
[2019-07-03] MEDS ORDERED: dextrose ORAL solution 15 GM/59 ML bottle PO PRN ×2 (08:36)
[2019-07-03] MEDS ORDERED: POTASSIUM BICARB 20meq eff tab 20 MEQ TABLET.EFF PO PRN ×2 (08:37)
[2019-07-03] MEDS ORDERED: insulin Lispro (HumaLOG) vial - multi-dose SQ SCH (09:00)
[2019-07-03 11:00] VITALS: BP 121/47
[2019-07-03 15:00] VITALS: BP 127/54
--- NOTE | 2019-07-03 17:39 | NUR ---
Discontinued chavarria catheter, patient tolerated well, no complications. Instructed patient to try to void in 30 mins. And to let the primary nurse know when she voids.
[2019-07-03 18:00] VITALS: BP 120/51
--- NOTE | 2019-07-03 18:26 | NUR ---
Patient in room [facility] 3014. I have received report from Shirley Ortiz and had the opportunity to ask questions and assume patient care. Addendum: 07/03/19 at 1826 by Nola Fraser RN Amended: Links added.
--- NOTE | 2019-07-03 18:27 | NUR ---
Problems reprioritized. Patient report given, questions answered & plan of care reviewed with NR. Aury
[2019-07-03] MEDS: insulin glargine (Lantus) pen - multi-dose SQ SCH (21:00)
[2019-07-03] MEDS: LORazepam 2 mg/ml vial IV PRN (21:33)
[2019-07-03 22:00] VITALS: BP 112/47
[2019-07-04 02:00] VITALS: BP 118/46
[2019-07-04 06:00] VITALS: BP 124/49
--- NOTE | 2019-07-04 06:06 | NUR ---
Problems reprioritized. Patient report given, questions answered & plan of care reviewed with JEREMI Samayoa.
--- NOTE | 2019-07-04 06:30 | NUR ---
Patient in room PCU 3014A. I have received report from Nola BLOOD and had the opportunity to ask questions and assume patient care.
[2019-07-04] MEDS: NYSTATIN CREAM - 30GM TUBE TP SCH (08:00)
[2019-07-04] MEDS: K, MAG and/or Phos replacement - Verify level? MC SCH (08:00)
[2019-07-04] MEDS ORDERED: folic acid 1mg tablet PO SCH ×2 (08:00)
[2019-07-04] MEDS ORDERED: thiamine 100mg tablet PO SCH (08:00)
[2019-07-04] MEDS: levoFLOXACIN-Levaquin 500mg/D5 100 ML IV SCH (09:13)
[2019-07-04] MEDS: pantoprazole 40 MG vial IV SCH (09:13)
[2019-07-04] MEDS: magnesium Cl slow-release 64mg tablet PO SCH (09:14)
[2019-07-04] MEDS: multivitamins, therapeutics tablet PO SCH (09:14)
[2019-07-04] MEDS: heparin, porcine 5000 units/ml vial SQ SCH (09:25)
[2019-07-04 11:00] VITALS: BP 109/53
--- NOTE | 2019-07-04 14:45 | NUR ---
Per MD order by Dr. Cardenas, patient is stable for discharge home. Discharge packet printed and reviewed with patient. All questions answered. IV removed with cannula intact, tele monitor removed. VS stable. All belongings sent with patient. Patient escorted to private vehicle via wheelchair to go home with family.
--- NOTE | 2019-07-04 15:18 | NUR ---
Reassessment: Patient's diet has been advanced to mechanical soft grind all food with thin liquids per ST recs and TF has been discontinued. Pt documented with average 50% PO intake up to 75% PO intake at dinner last night likely not meeting nutrient needs. Pt seen at bedside endorses a good appetite and states she is getting full from meals. Pt reports she usually doesn't eat a lot of food and she doesn't really like having her food ground up. Pt with no food preferences at this time as pt is pending discharge. Pt requests information about DM management although with no PMH DM and current A1c is 5.9. Pt reports diabetes runs in her family and she wants nutrition therapy information as a preventative measure. Pt provided with written DM education with referral to outpatient CDE course and RD contact information. Will continue to follow. Recommend: 1. Continue mechanical soft grind all food with thin liquids per ST recs 2. Bowel care PRN 3. Wt per rx Addendum: 07/04/19 at [address] Amended: Links added.
== END 2019-07-04 15:00 | disposition home or self-care (01) | DRG 896 ==
LOC: ER 00:50 → ED HOLD 03:25 → UNDOADMIN 03:42 → ED HOLD 03:42 → CICU 2S 04:34 → ED HOLD 04:34 → PCU 3S 06-30 11:23
PROVIDERS: ADMIT Internal Medicine Critical Care Medicine
DX: F10.231 Alcohol dependence with withdrawal delirium (principal); G93.41 Metabolic encephalopathy; E87.2 Acidosis; E87.0 Hyperosmolality and hypernatremia; D64.9 Anemia, unspecified; I10 Essential (primary) hypertension; Z59.0 Homelessness; Z91.19 Patient's noncompliance with other medical treatment and regimen; Z88.0 Allergy status to penicillin; Z88.2 Allergy status to sulfonamides
CPT/HCPCS: 36415; 36600; 71045; 76937; 80048; 80053; 80305; 80320; 81001; 82140; 82150; 82803; 82948; 83036; 83605; 83690; 83735; 84100; 84132; 84134; 84484; 85018; 85025; 85610; 85730; 87040; 87081; 92508; 92616; 93005; 94640; 94760; 96361; 96374; 96376; 97110; 97116; 97162; 97530; 99291; 99292; C9113; G0378; J1630; J1644; J1815; J1940; J1956; J2060; J2270; J2405; J3360; J3411; J3475; J3480; J3486; J3490; J7030; J7040; J7042; J7060